=== PATIENT | male | born 1940 | race Caucasian/White ===

== ENCOUNTER 2017-10-23 20:38 | Inpatient (IN) | payer MEDICARE, BC ==
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
[2017-10-23 21:29] LABS: BASOPHILE ABSOLUTE 0.3 Th/cumm (0-0.2); HEMATOCRIT 40.1 % (41.0-60); HEMOGLOBIN 13.3 gm/dL (12-16); LYMPHOCYTE ABSOLUTE 0.7 Th/cmm (1.5-3.0); MEAN CORPUSCULAR HEMOGLOBIN 29.4 pg (27.0-31.0); MEAN CORPUSCULAR HGB CONC 33.1 pg (28.0-36.0); MEAN PLATELET VOLUME 8.6 fl; MONOCYTE ABSOLUTE 0.2 Th/cmm (0.3-1.0); NEUTROPHILE ABSOLUTE 10.6 Th/cmm (1.8-8.0); PLATELET COUNT 245 Th/cmm (150-400); RED CELL DISTRIBUTION WIDTH 12.7 % (11.5-20.0); WHITE BLOOD COUNT 11.8 Th/cmm (4.8-10.8)
[2017-10-23 21:30] LABS: % BASOPHILS 2.2 % (0.0-2.0); % EOSINOPHILS 0.2 % (0.0-5.0); % LYMPHOCYTES 5.6 % (20.0-50.0); % MONOCYTES 1.9 % (2.0-10.0); % NEUTROPHILS 90.1 % (40.0-80.0)
[2017-10-23 21:42] LABS: ALB/GLOB RATIO 1.1 (1.0-1.8); ALBUMIN 3.8 gm/dL (4.2-5.5); ALKALINE PHOSPHATASE 51 U/L (34-104); ANION GAP 12.5 (7.0-16.0); BILIRUBIN,TOTAL 0.8 mg/dL (0.3-1.0); BUN - UREA NITROGEN 45 mg/dL (7-25); CALCIUM SERUM 8.9 mg/dL (8.6-10.3); CARBON DIOXIDE 25.3 mEq/L (21.0-31.0); CHLORIDE 92 mEq/L (98-107); CREATININE - SERUM 1.4 mg/dL (0.7-1.3); GLUCOSE 357 mg/dL (70-105); POTASSIUM SERUM 3.8 mEq/L (3.5-5.1); SGOT 22 U/L (13-39); SGPT/ALT 21 U/L (7-52); SODIUM SERUM 126 mEq/L (136-145); TOTAL PROTEIN,SERUM 7.4 gm/dL (6.0-8.3)
[2017-10-23] MEDS ORDERED: Sodium Chloride 0.9% 1,000 ML IV ONE (21:50)
[2017-10-23] MEDS ORDERED: cefTRIAXone 1 GM in Sodium Chloride 0.9% 50 ML IV ONE (21:51)
[2017-10-23 22:30] LABS: URINE MICROSCOPIC INDICATED? YES; URINE SOURCE RANDOM
[2017-10-23 22:33] LABS: URINE BILIRUBIN NEGATIVE (NEGATIVE); URINE BLOOD TRACE (NEGATIVE); URINE GLUCOSE (UA) >=1000 mg/dL (NEGATIVE); URINE KETONE NEGATIVE (NEGATIVE); URINE LEUKOCYTE ESTERASE MODERATE (NEGATIVE); URINE NITRATE POSITIVE (NEGATIVE); URINE PH 5.5 (4.6 - 8.0); URINE PROTEIN 30 mg/dL (NEGATIVE); URINE UROBILINOGEN 0.2 E.U./dL (0.2 - 1.0)
[2017-10-23 22:37] LABS: URINE CLARITY HAZY (CLEAR); URINE COLOR YELLOW
[2017-10-23 22:41] LABS: URINE BACTERIA MANY /hpf (NONE SEEN); URINE EPITHELIAL CELLS FEW /lpf (FEW); URINE RBC 0-2 /hpf (0-5); URINE WBC >100 /hpf (0-5)
[2017-10-23 23:30] VITALS: BP 124/66
[2017-10-23] MEDS ORDERED: Fleet Enema 135 mL RC PRN (23:41)
[2017-10-23] MEDS ORDERED: Guaifenesin/Dextromethorphan 100mg-10mg/5mL Sugar Free 118mL Bottle PO PRN (23:41)
[2017-10-23] MEDS ORDERED: Magnesium Hydroxide (MOM) 30 mL UDC PO PRN (23:41)
[2017-10-23] MEDS ORDERED: GLUCAGON HCl 1 MG KIT IM PRN (23:41)
[2017-10-24] MEDS ORDERED: GLUCAGON HCl 1 MG KIT IM PRN ×2 (00:23→01:31)
[2017-10-24] MEDS: INSULIN ASPART SLIDING SCALE 100 UNITS/ML UNIT SUBQ SCH ×4 (06:40→21:34)
--- NOTE | 2017-10-24 08:11 | Diagnostic Imaging Report ---
Chest x-ray single view History: Shortness of breath Comparison: None The heart size is normal. No focal pulmonary parenchymal processes. No hilar or mediastinal abnormalities. Impression: No acute abnormalities
[2017-10-24] MEDS: Atorvastatin Calcium 10 MG TAB PO SCH (08:57)
[2017-10-24] MEDS: Fenofibrate, Micronized 134 mg Cap PO SCH (08:58)
[2017-10-24] MEDS: Multivitamin w/ Minerals Tab PO SCH (09:00)
[2017-10-24] MEDS: Sulfamethoxazole/TMP 800/160mg Tab PO SCH ×2 (09:01→16:41)
[2017-10-24] MEDS ORDERED: Haloperidol Lactate 5 mg/mL 1mL Vial ONE (13:20)
[2017-10-24] MEDS ORDERED: Probiotic Screen MC PRN (16:45)
[2017-10-24] MEDS: Insulin Detemir 100 units/mL 10mL Vial SUBQ SCH (21:40)
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
--- NOTE | 2017-10-25 05:10 | History & Physical ---
ADMIT DATE: 10/23/2017 HISTORY OF PRESENT ILLNESS: The patient is a 77-year-old male with long history of diabetes mellitus, hypertension, benign prostatic hypertrophy, hyperlipidemia, dementia, admitted to [facility] under Dr. Rueda's service with acute agitation, dementia. The patient is a poor historian. PAST MEDICAL HISTORY: Significant for diabetes mellitus, hypertension, benign prostatic hypertrophy, hyperlipidemia, dementia. PAST SURGICAL HISTORY: No recent surgery. ALLERGIES: None. MEDICATIONS: Follow admission reconciliation. SOCIAL HISTORY: Ex-smoker. No alcohol or drugs. FAMILY HISTORY: Noncontributory. REVIEW OF SYSTEMS: SYSTEM: No history of chronic renal disorder. CARDIOVASCULAR SYSTEM: No coronary artery disease. He has history of hypertension. ENDOCRINE SYSTEM: History of diabetes mellitus. GASTROINTESTINAL SYSTEM: No upper or lower gastrointestinal bleed. NEUROLOGICAL SYSTEM: History of dementia. SKELETOMUSCULAR SYSTEM: No muscular dystrophy. HEMATOLOGIC SYSTEM: No bleeding tendencies. RESPIRATORY SYSTEM: No asthma. GENITOURINARY: No dysuria or hematuria. The patient has benign prostatic hypertrophy. PHYSICAL EXAMINATION: GENERAL: He is awake, not coherent. VITAL SIGNS: Temperature 97.4, heart rate 70, blood pressure 159/71. HEENT: Normocephalic. Pupils reacting to light and accommodation. Sclerae clear. NECK: Supple. Negative for lymphadenopathy, JVD or bruit. CHEST: Entry of air bilaterally normal. No rhonchi or wheezing. HEART: S1, S2 normal. No gallop rhythm. ABDOMEN: Soft, bowel sounds positive. EXTREMITIES: No edema. NEUROLOGIC: He is awake, alert. No focal motor deficits. LABORATORY DATA: White blood cell is 11.8, hemoglobin is 13.3, hematocrit is 40.1, and platelet is 245, neutrophils 90%. Sodium 126, potassium 3.8, BUN 45, creatinine 0.4, glucose 325. Urinalysis: White blood cells at 100, pH is 5.5, specific gravity 1.010. ASSESSMENT: 1. Urinary tract infection. 2. Hyponatremia. 3. Diabetes mellitus. 4. Hypertension. 5. Benign prostatic hypertrophy. 6. Dementia. PLAN: The patient admitted to the hospital under Dr. Rueda's service. Problems addressed during hospitalization are dementia, urinary tract infection, diabetes mellitus, hypertension. The problems addressed at discharge are diabetes mellitus, hypertension, dementia, benign prostatic hypertrophy. The patient is cleared for activity. Thank you Dr. Rueda for asking me to see your patient. The patient will be on Rocephin 1 gram IM once a day for 5 days. JOB# [id number]
[2017-10-25] MEDS: Sulfamethoxazole/TMP 800/160mg Tab PO SCH (09:51)
[2017-10-25] MEDS: Multivitamin w/ Minerals Tab PO SCH (09:51)
[2017-10-25] MEDS: Fenofibrate, Micronized 134 mg Cap PO SCH (09:52)
[2017-10-25] MEDS: Lactobacillus Rhamnosus GG 15 Billion CFU CAP.SPRINK PO SCH (09:52)
[2017-10-25] MEDS: Atorvastatin Calcium 10 MG TAB PO SCH (09:54)
[2017-10-25] MEDS: INSULIN ASPART SLIDING SCALE 100 UNITS/ML UNIT SUBQ SCH ×3 (12:34→20:45)
--- NOTE | 2017-10-25 18:43 | Internal Medicine Prog Note ---
Internal Medicine Subjective - Subjective Service Date: 10/25/17 Patient seen and examined:: with staff Patient is:: non-interactive, in bed, confused Per staff patient has:: no adverse event Internal Medicine Objective - Results Result Diagrams: 10/23/17 21:21 10/23/17 21:21 Recent Labs: Laboratory Last Values WBC 11.8 Th/cmm (4.8-10.8) H 10/23/17 21:21 RBC 4.50 Mil/cmm (3.80-5.80) 10/23/17 21:21 Hgb 13.3 gm/dL (12-16) 10/23/17 21:21 Hct 40.1 % (41.0-60) L 10/23/17 21:21 MCV 89.0 fl (80-99) 10/23/17 21:21 MCH 29.4 pg (27.0-31.0) 10/23/17 21: MCHC Differential 33.1 pg (28.0-36.0) 10/23/17 21:21 RDW 12.7 % (11.5-20.0) 10/23/17 21:21 Plt Count 245 Th/cmm (150-400) 10/23/17 21:21 MPV 8.6 fl 10/23/17 21:21 Neutrophils % 90.1 % (40.0-80.0) H 10/23/17 21:21 Lymphocytes % 5.6 % (20.0-50.0) L 10/23/17 21: Monocytes % 1.9 % (2.0-10.0) L 10/23/17 21:21 Eosinophils % 0.2 % (0.0-5.0) 10/23/17 21:21 Basophils % 2.2 % (0.0-2.0) H 10/23/17 21:21 Sodium 126 mEq/L (136-145) L 10/23/17 21:21 Potassium 3.8 mEq/L (3.5-5.1) 10/23/17 21:21 Chloride 92 mEq/L (98-107) L 10/23/17 21:21 Carbon Dioxide 25.3 mEq/L (21.0-31.0) 10/23/17 21: Anion Gap 12.5 (7.0-16.0) 10/23/17 21:21 BUN 45 mg/dL (7-25) H 10/23/17 21:21 Creatinine 1.4 mg/dL (0.7-1.3) H 10/23/17 21:21 Est GFR ( Amer) TNP 10/23/17 21:21 Est GFR (Non-Af Amer) TNP 10/23/17 21:21 BUN/Creatinine Ratio 32.1 10/23/17 21:21 Glucose 357 mg/dL (70-105) H 10/23/17 21:21 POC Glucose 292 MG/DL (70 - 105) H 10/24/17 16:10 Hemoglobin A1c % 12.0 % (4.0-6.0) H 10/23/17 21:21 Calcium 8.9 mg/dL (8.6-10.3) 10/23/17 21:21 Total Bilirubin 0.8 mg/dL (0.3-1.0) 10/23/17 21:21 AST 22 U/L (13-39) 10/23/17 21:21 ALT 21 U/L (7-52) 10/23/17 21:21 Alkaline Phosphatase 51 U/L (34-104) 10/23/17 21:21 Total Protein 7.4 gm/dL (6.0-8.3) 10/23/17 21:21 Albumin 3.8 gm/dL (4.2-5.5) L 10/23/17 21:21 Globulin 3.6 gm/dL 10/23/17 21:21 Albumin/Globulin Ratio 1.1 (1.0-1.8) 10/23/17 21:21 TSH 1.06 uIU/ml (0.34-5.60) 10/23/17 21:21 Urine Source RANDOM 10/23/17 22:05 Urine Color YELLOW 10/23/17 22:05 Urine Clarity HAZY (CLEAR) 10/23/17 22:05 Urine pH 5.5 (4.6 - 8.0) 10/23/17 22:05 Ur Specific Ullin 1.010 (1.005-1.030) 10/23/17 22:05 Urine Protein 30 mg/dL (NEGATIVE) H 10/23/17 22:05 Urine Glucose (UA) >=1000 mg/dL (NEGATIVE) H 10/23/17 22:05 Urine Ketones NEGATIVE mg/dL (NEGATIVE) 10/23/17 22:05 Urine Blood TRACE (NEGATIVE) 10/23/17 22:05 Urine Nitrate POSITIVE (NEGATIVE) H 10/23/17 22:05 Urine Bilirubin NEGATIVE (NEGATIVE) 10/23/17 22:05 Urine Urobilinogen 0.2 E.U./dL (0.2 - 1.0) 10/23/17 22:05 Ur Leukocyte Esterase MODERATE (NEGATIVE) H 10/23/17 22:05 Urine RBC 0-2 /hpf (0-5) H 10/23/17 22:05 Urine WBC >100 /hpf (0-5) H 10/23/17 22:05 Ur Epithelial Cells FEW /lpf (FEW) 10/23/17 22:05 Urine Bacteria MANY /hpf (NONE SEEN) H 10/23/17 22:05 - Physical Exam Vitals and I&O: Vital Signs Temp 97.8 F 10/25/17 14:00 Pulse 64 10/25/17 14:00 Resp 19 10/25/17 14:00 BP 137/84 10/25/17 17:28 Pulse Ox 96 10/25/17 14:00 Intake & Output 10/24/17 10/25/17 10/25/17 18:59 06:59 18:59 Intake Total 1200 1200 Balance 1200 1200 Intake: Oral 1200 1200 Other: # Bowel Movements 1 1 Active Medications: Current Medications Acetaminophen (Tylenol) 650 mg PO Q4HR PRN PRN Reason: Mild Pain / Temp above 100 Stop: 12/23/17 00:00 Last Admin: 10/25/17 15:56 Dose: 650 mg Ascorbic Acid (Vitamin C) 500 mg PO DAILY [facility] Stop: 12/23/17 08:59 Last Admin: 10/25/17 09:51 Dose: 500 mg Atorvastatin Calcium (Lipitor) 40 mg PO DAILY [facility] Stop: 12/23/17 08:59 Last Admin: 10/25/17 09:54 Dose: 40 mg Bisacodyl (Dulcolax 10 Mg Supp) 10 mg RC DAILY PRN PRN Reason: Constipation Stop: 12/22/17 23:40 Carvedilol (Coreg) 50 mg PO DAILY [facility] Stop: 12/23/17 08:59 Last Admin: 10/25/17 09:54 Dose: 50 mg Dextrose (Glutose 40%) 37.5 gm PO DAILY PRN PRN Reason: LOW SUGAR Stop: 12/22/17 23:40 Docusate Sodium (Colace) 100 mg PO DAILY [facility] Stop: 12/23/17 08:59 Last Admin: 10/25/17 09:51 Dose: 100 mg Escitalopram Oxalate (Lexapro) 20 mg PO HS ADRIANA PRN Reason: Protocol Stop: 12/23/17 20:59 Last Admin: 10/24/17 21:29 Dose: 20 mg Fenofibrate (Tricor) 134 mg PO DAILY [facility] Stop: 12/23/17 08:59 Last Admin: 10/25/17 09:52 Dose: 134 mg Furosemide (Lasix) 40 mg PO BID [facility] Stop: 12/23/17 08:59 Last Admin: 10/25/17 17:28 Dose: 40 mg Glucagon (Glucagen) 1 mg IM DAILY PRN; Protocol PRN Reason: LOW SUGAR (BG<70) Stop: 12/22/17 23:40 Guaifenesin/Dextromethorphan (Diabetic Tussin Dm Sugar Free) 5 ml PO Q6HR PRN PRN Reason: Cough Stop: 12/22/17 23:40 Insulin Aspart (Novolog Insulin Sliding Scale) 0 units SUBQ ACHS ADRIANA PRN Reason: Protocol Stop: 12/23/17 07:29 Last Admin: 10/25/17 17:27 Dose: 4 units Insulin Detemir (Levemir Insulin) 80 units SUBQ HS ADRIANA PRN Reason: Protocol Stop: 12/23/17 20:59 Last Admin: 10/24/17 21:40 Dose: 80 units Lactobacillus Rhamnosus (Culturelle 15b) 1 each PO DAILY [facility] Stop: 12/24/17 08:59 Last Admin: 10/25/17 09:52 Dose: 1 each Lorazepam (Ativan) 1 mg PO Q6HR PRN; Protocol PRN Reason: Anxiety/agitation Stop: 12/22/17 23:40 Last Admin: 10/25/17 17:28 Dose: 1 mg Magnesium Hydroxide (Milk Of Magnesia) 30 ml PO DAILY PRN PRN Reason: Constipation Stop: 12/22/17 23:40 Miscellaneous (Probiotic Screen) 1 ea MC PRN PRN PRN Reason: PROTOCOL Stop: 12/23/17 16:44 Quetiapine Fumarate (Seroquel) 50 mg PO TID ADRIANA PRN Reason: Protocol Stop: 12/24/17 08:59 Last Admin: 10/25/17 13:53 Dose: 50 mg Rivaroxaban (Xarelto) 20 mg PO 1700 [facility] Stop: 12/23/17 16:59 Last Admin: 10/25/17 17:28 Dose: 20 mg Tamsulosin HCl (Flomax) 0.4 mg PO HS ADRIANA Stop: 12/23/17 20:59 Last Admin: 10/24/17 21:29 Dose: 0.4 mg Trazodone HCl (Desyrel) 200 mg PO HS ADRIANA Stop: 12/23/17 20:59 Last Admin: 10/24/17 21:30 Dose: 200 mg Trimethoprim/Sulfamethoxazole (Bactrim Ds) 1 tab PO BID [facility] Stop: 12/27/17 18:00 Last Admin: 10/25/17 09:51 Dose: 1 tab Valsartan (Diovan) 320 mg PO DAILY [facility] Stop: 12/23/17 08:59 Last Admin: 10/25/17 09:53 Dose: 320 mg Zolpidem Tartrate (Ambien) 5 mg PO HS PRN PRN Reason: Insomnia Stop: 12/22/17 23:56 Last Admin: 10/24/17 23:33 Dose: 5 mg General: demented HEENT: NC/AT, PERRLA, EOMI, anicteric sclerae, throat clear Neck: Supple, No JVD, No thyromegaly, +2 carotid pulse wo bruit, No LAD Lungs: CTAB Cardiovascular: RRR, Normal S1, Normal S2, without murmur Abdomen: non-distended Extremities: clear Neurological: no change Internal Medicine Assmt/Plan - Assessment Assessment: 1.UTI. 2.DM. 3.HTN. 4.BPH. 5.HYPONATREMIA. 6.DEMENTIA. - Plan Plan: CONTINUE ON CURRENT MEDICATION AND DIET. Nutritional Asmnt/Malnutr-PDOC - Dietary Evaluation Malnutrition Findings (Please click <Entered> for more info): Nutritional Asmnt/Malnutrition Start: 10/24/17 14: 31 Text: Status: Complete Freq: Document 10/24/17 14:33 LCHENG (Rec: 10/24/17 14:41 [email or web address]) Nutritional Asmnt/Malnutrition Patient General Information Nutritional Screening High Risk Diagnosis psychosis Pertinent Medical Hx/Surgical Hx HTN, CAD, CHF, dyslipidemia, BPH, psoriasis, DM, anxiety Subjective Information Pt seen sitting in dinning room at time of visit, just finished lunch tray. Pt stated he does not like cucumber and cottage cheeze. Current Diet Order/ Nutrition Support low sodium 2 gm, CCHO, TOM Pertinent Medications vitamin C, colace, lasix, glucagen, novolog, levemir Pertinent Labs 10/23 Na 126, K 3.8, Cl 92, BUN 45, Cr 1.4, Glucose 357, ALb 3.8 10/24 POC 325 Nutritional Hx/Data Height 1.75 m Height (Calculated Centimeters) 175.3 Current Weight (lbs) 102.058 kg Weight (Calculated Kilograms) 102.1 Weight (Calculated Grams) 150654.3 [place] Body Weight 160 % [place] Body Weight 140 Body Mass Index (BMI) 33.2 Weight Status Obese GI Symptoms GI Symptoms None Last BM 10/24 x 3 Difficult in: None Usual diet at home pt stated he was not following any diet restrictions Skin Integrity/Comment: juan Ulrich Estimated Nutritional Goals BEE in Kcals: Adj wt of IBW Calories/Kcals/Kg 25-30 Kcals Calculated 9101-2061 Protein: Adj wt of IBW Protein g/k Protein Calculated 80 Fluid: ml 2000-2400ml (1ml/kcal) Nutritional Problem 2. Problem Problem obesity Etiology possible excessive energy intake Signs/Symptoms: BMI 33.2 1. Problem Problem altered nutrition related lab values Etiology hx of DM, excessive carbohydrates intake Signs/Symptoms: Glucose 357, POC 325 Malnutrition Alert Protein-Calorie Malnutrition N/A Is there a minimum of two criteria No selected? Query Text:Check all the applicable criteria. A minimum of two criteria are recommended for diagnosis of either severe or non-severe malnutrition. Intervention/Recommendation Comments 1. Continue with current diet as ordered. [facility] Pt receiptive, no question or concern, will follow the diet. 2. Monitor PO intake, wt, labs and skin integrity 3. F/U as moderate risk in 3-5 days, 10/27-10/29 Expected Outcomes/Goals Expected Outcomes/Goals 1. PO intake to meet at least 75% of nutritional needs. 2. Wt stability, skin to remain intact, labs to improve
[2017-10-25] MEDS: Insulin Detemir 100 units/mL 10mL Vial SUBQ SCH (21:29)
--- NOTE | 2017-10-26 04:45 | Progress Notes ---
DATE: 10/25/2017 SUBJECTIVE: Chart reviewed and the patient interviewed. Also discussed the patient's condition with the staff and reviewed the records and labs. The patient is still extremely agitated and he is still in irritable mood. The patient also is needy and he is still suspicious and paranoid. The patient also is still needy and is demanding and the patient constantly asking staff to change his diapers and when they changes the diapers, shortly after he take off the diaper and then ask them to change it again. He is also confused and he is in irritable and angry mood. Also, he is having difficulty following directions and he is still unable to sleep at night. ASSESSMENT: The patient is still psychotic and is agitated. TREATMENT PLAN: We will continue to monitor his behavior and his condition closely. Also, we will add Seroquel in a dose of 50 mg 3 times a day. Also, continue to work on behavioral modification. Yesterday, the patient was given emergency dose of Haldol, Ativan, and Benadryl to calm him down. No side effects. JOB# [id number]
[2017-10-26] MEDS: INSULIN ASPART SLIDING SCALE 100 UNITS/ML UNIT SUBQ SCH ×4 (06:36→21:03)
[2017-10-26] MEDS: Lactobacillus Rhamnosus GG 15 Billion CFU CAP.SPRINK PO SCH (09:08)
[2017-10-26] MEDS: Fenofibrate, Micronized 134 mg Cap PO SCH (09:08)
[2017-10-26] MEDS: Sulfamethoxazole/TMP 800/160mg Tab PO SCH (09:09)
[2017-10-26] MEDS: Atorvastatin Calcium 10 MG TAB PO SCH (09:09)
[2017-10-26] MEDS: Multivitamin w/ Minerals Tab PO SCH (09:09)
[2017-10-26] MEDS ORDERED: Amoxicillin/Clavulanat 875/125 Tab PO SCH (17:00)
[2017-10-26] MEDS: Amoxicillin/Clavulanat 875/125 Tab PO SCH (17:32)
--- NOTE | 2017-10-26 17:43 | Internal Medicine Prog Note ---
Internal Medicine Subjective - Subjective Service Date: 10/26/17 Patient seen and examined:: with staff Patient is:: non-interactive, in bed, confused Per staff patient has:: no adverse event Internal Medicine Objective - Results Result Diagrams: 10/23/17 21:21 10/23/17 21:21 Recent Labs: Laboratory Last Values WBC 11.8 Th/cmm (4.8-10.8) H 10/23/17 21:21 RBC 4.50 Mil/cmm (3.80-5.80) 10/23/17 21:21 Hgb 13.3 gm/dL (12-16) 10/23/17 21:21 Hct 40.1 % (41.0-60) L 10/23/17 21:21 MCV 89.0 fl (80-99) 10/23/17 21:21 MCH 29.4 pg (27.0-31.0) 10/23/17 21: MCHC Differential 33.1 pg (28.0-36.0) 10/23/17 21:21 RDW 12.7 % (11.5-20.0) 10/23/17 21:21 Plt Count 245 Th/cmm (150-400) 10/23/17 21:21 MPV 8.6 fl 10/23/17 21:21 Neutrophils % 90.1 % (40.0-80.0) H 10/23/17 21:21 Lymphocytes % 5.6 % (20.0-50.0) L 10/23/17 21: Monocytes % 1.9 % (2.0-10.0) L 10/23/17 21:21 Eosinophils % 0.2 % (0.0-5.0) 10/23/17 21:21 Basophils % 2.2 % (0.0-2.0) H 10/23/17 21:21 Sodium 126 mEq/L (136-145) L 10/23/17 21:21 Potassium 3.8 mEq/L (3.5-5.1) 10/23/17 21:21 Chloride 92 mEq/L (98-107) L 10/23/17 21:21 Carbon Dioxide 25.3 mEq/L (21.0-31.0) 10/23/17 21: Anion Gap 12.5 (7.0-16.0) 10/23/17 21:21 BUN 45 mg/dL (7-25) H 10/23/17 21:21 Creatinine 1.4 mg/dL (0.7-1.3) H 10/23/17 21:21 Est GFR ( Amer) TNP 10/23/17 21:21 Est GFR (Non-Af Amer) TNP 10/23/17 21:21 BUN/Creatinine Ratio 32.1 10/23/17 21:21 Glucose 357 mg/dL (70-105) H 10/23/17 21:21 POC Glucose 134 MG/DL (70 - 105) H 10/26/17 17:21 Hemoglobin A1c % 12.0 % (4.0-6.0) H 10/23/17 21:21 Calcium 8.9 mg/dL (8.6-10.3) 10/23/17 21:21 Total Bilirubin 0.8 mg/dL (0.3-1.0) 10/23/17 21:21 AST 22 U/L (13-39) 10/23/17 21:21 ALT 21 U/L (7-52) 10/23/17 21:21 Alkaline Phosphatase 51 U/L (34-104) 10/23/17 21:21 Total Protein 7.4 gm/dL (6.0-8.3) 10/23/17 21:21 Albumin 3.8 gm/dL (4.2-5.5) L 10/23/17 21:21 Globulin 3.6 gm/dL 10/23/17 21:21 Albumin/Globulin Ratio 1.1 (1.0-1.8) 10/23/17 21:21 TSH 1.06 uIU/ml (0.34-5.60) 10/23/17 21:21 Urine Source RANDOM 10/23/17 22:05 Urine Color YELLOW 10/23/17 22:05 Urine Clarity HAZY (CLEAR) 10/23/17 22:05 Urine pH 5.5 (4.6 - 8.0) 10/23/17 22:05 Ur Specific [place] 1.010 (1.005-1.030) 10/23/17 22:05 Urine Protein 30 mg/dL (NEGATIVE) H 10/23/17 22:05 Urine Glucose (UA) >=1000 mg/dL (NEGATIVE) H 10/23/17 22:05 Urine Ketones NEGATIVE mg/dL (NEGATIVE) 10/23/17 22:05 Urine Blood TRACE (NEGATIVE) 10/23/17 22:05 Urine Nitrate POSITIVE (NEGATIVE) H 10/23/17 22:05 Urine Bilirubin NEGATIVE (NEGATIVE) 10/23/17 22:05 Urine Urobilinogen 0.2 E.U./dL (0.2 - 1.0) 10/23/17 22:05 Ur Leukocyte Esterase MODERATE (NEGATIVE) H 10/23/17 22:05 Urine RBC 0-2 /hpf (0-5) H 10/23/17 22:05 Urine WBC >100 /hpf (0-5) H 10/23/17 22:05 Ur Epithelial Cells FEW /lpf (FEW) 10/23/17 22:05 Urine Bacteria MANY /hpf (NONE SEEN) H 10/23/17 22:05 - Physical Exam Vitals and I&O: Vital Signs Temp 97.0 F 10/26/17 15:00 Pulse 70 10/26/17 17:27 Resp 19 10/26/17 15:00 BP 109/67 10/26/17 17:27 Pulse Ox 95 10/26/17 15:00 Intake & Output 10/25/17 10/26/17 10/26/17 18:59 06:59 18:59 Intake Total 1200 500 Balance 1200 500 Intake: Oral 1200 500 Other: # Voids 2 # Bowel Movements 1 0 Active Medications: Current Medications Acetaminophen (Tylenol) 650 mg PO Q4HR PRN PRN Reason: Mild Pain / Temp above 100 Stop: 12/23/17 00:00 Last Admin: 10/25/17 15:56 Dose: 650 mg Amoxicillin/Clavulanate Potassium (Augmentin 875-125mg) 1 tab PO BID [facility] Stop: 12/25/17 16:59 Last Admin: 10/26/17 17:32 Dose: 1 tab Ascorbic Acid (Vitamin C) 500 mg PO DAILY [facility] Stop: 12/23/17 08:59 Last Admin: 10/26/17 09:09 Dose: 500 mg Atorvastatin Calcium (Lipitor) 40 mg PO DAILY [facility] Stop: 12/23/17 08:59 Last Admin: 10/26/17 09:09 Dose: 40 mg Bisacodyl (Dulcolax 10 Mg Supp) 10 mg RC DAILY PRN PRN Reason: Constipation Stop: 12/22/17 23:40 Carvedilol (Coreg) 50 mg PO DAILY [facility] Stop: 12/23/17 08:59 Last Admin: 10/26/17 17:26 Dose: Not Given Dextrose (Glutose 40%) 37.5 gm PO DAILY PRN PRN Reason: LOW SUGAR Stop: 12/22/17 23:40 Docusate Sodium (Colace) 100 mg PO DAILY [facility] Stop: 12/23/17 08:59 Last Admin: 10/26/17 15:29 Dose: Not Given Escitalopram Oxalate (Lexapro) 20 mg PO HS [facility] PRN Reason: Protocol Stop: 12/23/17 20:59 Last Admin: 10/25/17 20:44 Dose: 20 mg Fenofibrate (Tricor) 134 mg PO DAILY [facility] Stop: 12/23/17 08:59 Last Admin: 10/26/17 09:08 Dose: 134 mg Furosemide (Lasix) 40 mg PO BID [facility] Stop: 12/23/17 08:59 Last Admin: 10/26/17 17:27 Dose: Not Given Glucagon (Glucagen) 1 mg IM DAILY PRN; Protocol PRN Reason: LOW SUGAR (BG<70) Stop: 12/22/17 23:40 Guaifenesin/Dextromethorphan (Diabetic Tussin Dm Sugar Free) 5 ml PO Q6HR PRN PRN Reason: Cough Stop: 12/22/17 23:40 Insulin Aspart (Novolog Insulin Sliding Scale) 0 units SUBQ ACHS [facility] PRN Reason: Protocol Stop: 12/23/17 07:29 Last Admin: 10/26/17 17:25 Dose: Not Given Insulin Detemir (Levemir Insulin) 80 units SUBQ HS [facility] PRN Reason: Protocol Stop: 12/23/17 20:59 Last Admin: 10/25/17 21:29 Dose: 80 units Lactobacillus Rhamnosus (Culturelle 15b) 1 each PO DAILY [facility] Stop: 12/24/17 08:59 Last Admin: 10/26/17 09:08 Dose: 1 each Lorazepam (Ativan) 1 mg PO Q6HR PRN; Protocol PRN Reason: Anxiety/agitation Stop: 12/22/17 23:40 Last Admin: 10/26/17 15:35 Dose: 1 mg Magnesium Hydroxide (Milk Of Magnesia) 30 ml PO DAILY PRN PRN Reason: Constipation Stop: 12/22/17 23:40 Miscellaneous (Probiotic Screen) 1 ea MC PRN PRN PRN Reason: PROTOCOL Stop: 12/23/17 16:44 Quetiapine Fumarate (Seroquel) 50 mg PO TID [facility] PRN Reason: Protocol Stop: 12/24/17 08:59 Last Admin: 10/26/17 14:25 Dose: 50 mg Rivaroxaban (Xarelto) 20 mg PO 1700 [facility] Stop: 12/23/17 16:59 Last Admin: 10/26/17 17:32 Dose: 20 mg Tamsulosin HCl (Flomax) 0.4 mg PO HS [facility] Stop: 12/23/17 20:59 Last Admin: 10/25/17 20:45 Dose: 0.4 mg Trazodone HCl (Desyrel) 200 mg PO HS [facility] Stop: 12/23/17 20:59 Last Admin: 10/25/17 20:44 Dose: 200 mg Valsartan (Diovan) 320 mg PO DAILY [facility] Stop: 12/23/17 08:59 Last Admin: 10/26/17 17:27 Dose: Not Given Zolpidem Tartrate (Ambien) 5 mg PO HS PRN PRN Reason: Insomnia Stop: 12/22/17 23:56 Last Admin: 10/25/17 23:24 Dose: 5 mg General: demented HEENT: NC/AT, PERRLA, EOMI, anicteric sclerae, throat clear Neck: Supple, No JVD, No thyromegaly, +2 carotid pulse wo bruit, No LAD Lungs: CTAB Cardiovascular: RRR, Normal S1, Normal S2, without murmur Abdomen: non-distended Extremities: clear Neurological: no change Internal Medicine Assmt/Plan - Assessment Assessment: 1.UTI. 2.DM. 3.HTN. 4.BPH. 5.HYPONATREMIA. 6.DEMENTIA. - Plan Plan: CONTINUE ON CURRENT MEDICATION AND DIET.CHANGE ANTIBIOTIC TO AUGMENTIN 875 MG BID. Nutritional Asmnt/Malnutr-PDOC - Dietary Evaluation Malnutrition Findings (Please click <Entered> for more info): Nutritional Asmnt/Malnutrition Start: 10/24/17 14: 31 Text: Status: Complete Freq: Document 10/24/17 14:33 LCHENG (Rec: 10/24/17 14:41 [facility] [id number]) Nutritional Asmnt/Malnutrition Patient General Information Nutritional Screening High Risk Diagnosis psychosis Pertinent Medical Hx/Surgical Hx HTN, CAD, CHF, dyslipidemia, BPH, psoriasis, DM, anxiety Subjective Information Pt seen sitting in dinning room at time of visit, just finished lunch tray. Pt stated he does not like cucumber and cottage cheeze. Current Diet Order/ Nutrition Support low sodium 2 gm, CCHO, TOM Pertinent Medications vitamin C, colace, lasix, glucagen, novolog, levemir Pertinent Labs 10/23 Na 126, K 3.8, Cl 92, BUN 45, Cr 1.4, Glucose 357, ALb 3.8 10/24 POC 325 Nutritional Hx/Data Height 1.75 m Height (Calculated Centimeters) 175.3 Current Weight (lbs) 102.058 kg Weight (Calculated Kilograms) 102.1 Weight (Calculated Grams) 690299.3 [place] Body Weight 160 % [place] Body Weight 140 Body Mass Index (BMI) 33.2 Weight Status Obese GI Symptoms GI Symptoms None Last BM 10/24 x 3 Difficult in: None Usual diet at home pt stated he was not following any diet restrictions Skin Integrity/Comment: juan Ulrich Estimated Nutritional Goals BEE in Kcals: Adj wt of IBW Calories/Kcals/Kg 25-30 Kcals Calculated 6264-5236 Protein: Adj wt of IBW Protein g/k Protein Calculated 80 Fluid: ml 2000-2400ml (1ml/kcal) Nutritional Problem 2. Problem Problem obesity Etiology possible excessive energy intake Signs/Symptoms: BMI 33.2 1. Problem Problem altered nutrition related lab values Etiology hx of DM, excessive carbohydrates intake Signs/Symptoms: Glucose 357, POC 325 Malnutrition Alert Protein-Calorie Malnutrition N/A Is there a minimum of two criteria No selected? Query Text:Check all the applicable criteria. A minimum of two criteria are recommended for diagnosis of either severe or non-severe malnutrition. Intervention/Recommendation Comments 1. Continue with current diet as ordered. Explained [facility] diet to pt. Pt receiptive, no question or concern, will follow the diet. 2. Monitor PO intake, wt, labs and skin integrity 3. F/U as moderate risk in 3-5 days, 10/27-10/29 Expected Outcomes/Goals Expected Outcomes/Goals 1. PO intake to meet at least 75% of nutritional needs. 2. Wt stability, skin to remain intact, labs to improve
[2017-10-26] MEDS: Insulin Detemir 100 units/mL 10mL Vial SUBQ SCH (21:03)
[2017-10-27] MEDS: INSULIN ASPART SLIDING SCALE 100 UNITS/ML UNIT SUBQ SCH ×4 (06:59→21:22)
--- NOTE | 2017-10-27 07:35 | Progress Notes ---
DATE: 10/26/2017 SUBJECTIVE: Chart reviewed and the patient interviewed. Also discussed the patient's condition with the staff and reviewed records and labs. The patient continued to be suspicious and severely paranoid. The patient also is taking off his clothes and also asking to change his diaper and after staff changing his diaper, he takes off his clothes again and take off the diaper and asks to staff to change with a new diaper. He is also still easily agitated and confused and he is still rambling with disorganized thoughts. Also unable to follow any of the staff directions. ASSESSMENT: The patient is still confused and is still agitated. TREATMENT PLAN: The patient started on Seroquel 50 mg 3 times a day. We will continue same dose. Also, continue to monitor his behavior and his condition closely and also we will place the patient on 5250 hold for dangerous to others as well as grave disability. JOB# [id number]
[2017-10-27] MEDS: Atorvastatin Calcium 10 MG TAB PO SCH (08:25)
[2017-10-27] MEDS: Multivitamin w/ Minerals Tab PO SCH (08:25)
[2017-10-27] MEDS: Lactobacillus Rhamnosus GG 15 Billion CFU CAP.SPRINK PO SCH (08:26)
[2017-10-27] MEDS: Amoxicillin/Clavulanat 875/125 Tab PO SCH ×2 (08:30→17:26)
[2017-10-27] MEDS: Fenofibrate, Micronized 134 mg Cap PO SCH (08:31)
--- NOTE | 2017-10-27 20:23 | Internal Medicine Prog Note ---
Internal Medicine Subjective - Subjective Service Date: 10/27/17 Patient seen and examined:: without staff Patient is:: non-interactive, in bed, confused Per staff patient has:: no adverse event Internal Medicine Objective - Results Result Diagrams: 10/23/17 21:21 10/23/17 21:21 Recent Labs: Laboratory Last Values WBC 11.8 Th/cmm (4.8-10.8) H 10/23/17 21:21 RBC 4.50 Mil/cmm (3.80-5.80) 10/23/17 21:21 Hgb 13.3 gm/dL (12-16) 10/23/17 21:21 Hct 40.1 % (41.0-60) L 10/23/17 21:21 MCV 89.0 fl (80-99) 10/23/17 21:21 MCH 29.4 pg (27.0-31.0) 10/23/17 21: MCHC Differential 33.1 pg (28.0-36.0) 10/23/17 21:21 RDW 12.7 % (11.5-20.0) 10/23/17 21:21 Plt Count 245 Th/cmm (150-400) 10/23/17 21:21 MPV 8.6 fl 10/23/17 21:21 Neutrophils % 90.1 % (40.0-80.0) H 10/23/17 21:21 Lymphocytes % 5.6 % (20.0-50.0) L 10/23/17 21: Monocytes % 1.9 % (2.0-10.0) L 10/23/17 21:21 Eosinophils % 0.2 % (0.0-5.0) 10/23/17 21:21 Basophils % 2.2 % (0.0-2.0) H 10/23/17 21:21 Sodium 126 mEq/L (136-145) L 10/23/17 21:21 Potassium 3.8 mEq/L (3.5-5.1) 10/23/17 21:21 Chloride 92 mEq/L (98-107) L 10/23/17 21:21 Carbon Dioxide 25.3 mEq/L (21.0-31.0) 10/23/17 21: Anion Gap 12.5 (7.0-16.0) 10/23/17 21:21 BUN 45 mg/dL (7-25) H 10/23/17 21:21 Creatinine 1.4 mg/dL (0.7-1.3) H 10/23/17 21:21 Est GFR ( Amer) TNP 10/23/17 21:21 Est GFR (Non-Af Amer) TNP 10/23/17 21:21 BUN/Creatinine Ratio 32.1 10/23/17 21:21 Glucose 357 mg/dL (70-105) H 10/23/17 21:21 POC Glucose 76 MG/DL (70 - 105) 10/27/17 06:54 Hemoglobin A1c % 12.0 % (4.0-6.0) H 10/23/17 21:21 Calcium 8.9 mg/dL (8.6-10.3) 10/23/17 21:21 Total Bilirubin 0.8 mg/dL (0.3-1.0) 10/23/17 21:21 AST 22 U/L (13-39) 10/23/17 21:21 ALT 21 U/L (7-52) 10/23/17 21:21 Alkaline Phosphatase 51 U/L (34-104) 10/23/17 21:21 Total Protein 7.4 gm/dL (6.0-8.3) 10/23/17 21:21 Albumin 3.8 gm/dL (4.2-5.5) L 10/23/17 21:21 Globulin 3.6 gm/dL 10/23/17 21:21 Albumin/Globulin Ratio 1.1 (1.0-1.8) 10/23/17 21:21 TSH 1.06 uIU/ml (0.34-5.60) 10/23/17 21:21 Urine Source RANDOM 10/23/17 22:05 Urine Color YELLOW 10/23/17 22:05 Urine Clarity HAZY (CLEAR) 10/23/17 22:05 Urine pH 5.5 (4.6 - 8.0) 10/23/17 22:05 Ur Specific [place] 1.010 (1.005-1.030) 10/23/17 22:05 Urine Protein 30 mg/dL (NEGATIVE) H 10/23/17 22:05 Urine Glucose (UA) >=1000 mg/dL (NEGATIVE) H 10/23/17 22:05 Urine Ketones NEGATIVE mg/dL (NEGATIVE) 10/23/17 22:05 Urine Blood TRACE (NEGATIVE) 10/23/17 22:05 Urine Nitrate POSITIVE (NEGATIVE) H 10/23/17 22:05 Urine Bilirubin NEGATIVE (NEGATIVE) 10/23/17 22:05 Urine Urobilinogen 0.2 E.U./dL (0.2 - 1.0) 10/23/17 22:05 Ur Leukocyte Esterase MODERATE (NEGATIVE) H 10/23/17 22:05 Urine RBC 0-2 /hpf (0-5) H 10/23/17 22:05 Urine WBC >100 /hpf (0-5) H 10/23/17 22:05 Ur Epithelial Cells FEW /lpf (FEW) 10/23/17 22:05 Urine Bacteria MANY /hpf (NONE SEEN) H 10/23/17 22:05 - Physical Exam Vitals and I&O: Vital Signs Temp 98.8 F 10/27/17 14:00 Pulse 90 10/27/17 14:00 Resp 20 10/27/17 14:00 BP 102/54 10/27/17 17:26 Pulse Ox 97 10/27/17 14:00 Intake & Output 10/27/17 10/27/17 10/28/17 06:59 18:59 06:59 Intake Total 900 Balance 900 Intake: Oral 900 Other: # Voids 3 # Bowel Movements 4 Active Medications: Current Medications Acetaminophen (Tylenol) 650 mg PO Q4HR PRN PRN Reason: Mild Pain / Temp above 100 Stop: 12/23/17 00:00 Last Admin: 10/25/17 15:56 Dose: 650 mg Amoxicillin/Clavulanate Potassium (Augmentin 875-125mg) 1 tab PO BID [facility] Stop: 12/25/17 16:59 Last Admin: 10/27/17 17:26 Dose: 1 tab Ascorbic Acid (Vitamin C) 500 mg PO DAILY [facility] Stop: 12/23/17 08:59 Last Admin: 10/27/17 08:32 Dose: 500 mg Atorvastatin Calcium (Lipitor) 40 mg PO DAILY [facility] Stop: 12/23/17 08:59 Last Admin: 10/27/17 08:25 Dose: 40 mg Bisacodyl (Dulcolax 10 Mg Supp) 10 mg RC DAILY PRN PRN Reason: Constipation Stop: 12/22/17 23:40 Carvedilol (Coreg) 50 mg PO DAILY [facility] Stop: 12/23/17 08:59 Last Admin: 10/27/17 08:27 Dose: 50 mg Dextrose (Glutose 40%) 37.5 gm PO DAILY PRN PRN Reason: LOW SUGAR Stop: 12/22/17 23:40 Docusate Sodium (Colace) 100 mg PO DAILY [facility] Stop: 12/23/17 08:59 Last Admin: 10/27/17 08:31 Dose: 100 mg Escitalopram Oxalate (Lexapro) 20 mg PO HS [facility] PRN Reason: Protocol Stop: 12/23/17 20:59 Last Admin: 10/26/17 20:10 Dose: 20 mg Fenofibrate (Tricor) 134 mg PO DAILY [facility] Stop: 12/23/17 08:59 Last Admin: 10/27/17 08:31 Dose: 134 mg Furosemide (Lasix) 40 mg PO BID [facility] Stop: 12/23/17 08:59 Last Admin: 10/27/17 17:26 Dose: 40 mg Glucagon (Glucagen) 1 mg IM DAILY PRN; Protocol PRN Reason: LOW SUGAR (BG<70) Stop: 12/22/17 23:40 Guaifenesin/Dextromethorphan (Diabetic Tussin Dm Sugar Free) 5 ml PO Q6HR PRN PRN Reason: Cough Stop: 12/22/17 23:40 Insulin Aspart (Novolog Insulin Sliding Scale) 0 units SUBQ ACHS [facility] PRN Reason: Protocol Stop: 12/23/17 07:29 Last Admin: 10/27/17 16:33 Dose: Not Given Insulin Detemir (Levemir Insulin) 80 units SUBQ HS [facility] PRN Reason: Protocol Stop: 12/23/17 20:59 Last Admin: 10/26/17 21:03 Dose: 80 units Lactobacillus Rhamnosus (Culturelle 15b) 1 each PO DAILY [facility] Stop: 12/24/17 08:59 Last Admin: 10/27/17 08:26 Dose: 1 each Lorazepam (Ativan) 1 mg PO Q6HR PRN; Protocol PRN Reason: Anxiety/agitation Stop: 12/22/17 23:40 Last Admin: 10/26/17 23:01 Dose: 1 mg Magnesium Hydroxide (Milk Of Magnesia) 30 ml PO DAILY PRN PRN Reason: Constipation Stop: 12/22/17 23:40 Miscellaneous (Probiotic Screen) 1 ea MC PRN PRN PRN Reason: PROTOCOL Stop: 12/23/17 16:44 Quetiapine Fumarate (Seroquel) 50 mg PO TID [facility] PRN Reason: Protocol Stop: 12/24/17 08:59 Last Admin: 10/27/17 14:27 Dose: 50 mg Rivaroxaban (Xarelto) 20 mg PO 1700 [facility] Stop: 12/23/17 16:59 Last Admin: 10/27/17 17:26 Dose: 20 mg Tamsulosin HCl (Flomax) 0.4 mg PO HS [facility] Stop: 12/23/17 20:59 Last Admin: 10/26/17 20:10 Dose: 0.4 mg Trazodone HCl (Desyrel) 200 mg PO HS [facility] Stop: 12/23/17 20:59 Last Admin: 10/26/17 20:10 Dose: 200 mg Valsartan (Diovan) 320 mg PO DAILY [facility] Stop: 12/23/17 08:59 Last Admin: 10/27/17 08:26 Dose: 320 mg Zolpidem Tartrate (Ambien) 5 mg PO HS PRN PRN Reason: Insomnia Stop: 12/22/17 23:56 Last Admin: 10/26/17 23:01 Dose: 5 mg General: demented HEENT: NC/AT, PERRLA, EOMI, anicteric sclerae, throat clear Neck: Supple, No JVD, No thyromegaly, +2 carotid pulse wo bruit, No LAD Lungs: CTAB Cardiovascular: RRR, Normal S1, Normal S2, without murmur Abdomen: non-distended Extremities: clear Neurological: no change Internal Medicine Assmt/Plan - Assessment Assessment: 1.UTI. 2.DM. 3.HTN. 4.BPH. 5.HYPONATREMIA. 6.DEMENTIA. - Plan Plan: CONTINUE ON CURRENT MEDICATION AND DIET. Nutritional Asmnt/Malnutr-PDOC - Dietary Evaluation Malnutrition Findings (Please click <Entered> for more info): Nutritional Asmnt/Malnutrition Start: 10/24/17 14: 31 Text: Status: Complete Freq: Document 10/24/17 14:33 LCHENG (Rec: 10/24/17 14:41 LCHENG [email or web address]) Nutritional Asmnt/Malnutrition Patient General Information Nutritional Screening High Risk Diagnosis psychosis Pertinent Medical Hx/Surgical Hx HTN, CAD, CHF, dyslipidemia, BPH, psoriasis, DM, anxiety Subjective Information Pt seen sitting in dinning room at time of visit, just finished lunch tray. Pt stated he does not like cucumber and cottage cheeze. Current Diet Order/ Nutrition Support low sodium 2 gm, CCHO, TOM Pertinent Medications vitamin C, colace, lasix, glucagen, novolog, levemir Pertinent Labs 10/23 Na 126, K 3.8, Cl 92, BUN 45, Cr 1.4, Glucose 357, ALb 3.8 10/24 POC 325 Nutritional Hx/Data Height 1.75 m Height (Calculated Centimeters) 175.3 Current Weight (lbs) 102.058 kg Weight (Calculated Kilograms) 102.1 Weight (Calculated Grams) 058838.3 [place] Body Weight 160 % [place] Body Weight 140 Body Mass Index (BMI) 33.2 Weight Status Obese GI Symptoms GI Symptoms None Last BM 10/24 x 3 Difficult in: None Usual diet at home pt stated he was not following any diet restrictions Skin Integrity/Comment: juan Ulrich Estimated Nutritional Goals BEE in Kcals: Adj wt of IBW Calories/Kcals/Kg 25-30 Kcals Calculated 4356-1287 Protein: Adj wt of IBW Protein g/k Protein Calculated 80 Fluid: ml 2000-2400ml (1ml/kcal) Nutritional Problem 2. Problem Problem obesity Etiology possible excessive energy intake Signs/Symptoms: BMI 33.2 1. Problem Problem altered nutrition related lab values Etiology hx of DM, excessive carbohydrates intake Signs/Symptoms: Glucose 357, POC 325 Malnutrition Alert Protein-Calorie Malnutrition N/A Is there a minimum of two criteria No selected? Query Text:Check all the applicable criteria. A minimum of two criteria are recommended for diagnosis of either severe or non-severe malnutrition. Intervention/Recommendation Comments 1. Continue with current diet as ordered. Explained [facility] diet to pt. Pt receiptive, no question or concern, will follow the diet. 2. Monitor PO intake, wt, labs and skin integrity 3. F/U as moderate risk in 3-5 days, 10/27-10/29 Expected Outcomes/Goals Expected Outcomes/Goals 1. PO intake to meet at least 75% of nutritional needs. 2. Wt stability, skin to remain intact, labs to improve
[2017-10-27] MEDS: Insulin Detemir 100 units/mL 10mL Vial SUBQ SCH (21:23)
[2017-10-28] MEDS: INSULIN ASPART SLIDING SCALE 100 UNITS/ML UNIT SUBQ SCH ×4 (07:05→21:26)
[2017-10-28] MEDS: Lactobacillus Rhamnosus GG 15 Billion CFU CAP.SPRINK PO SCH (08:48)
[2017-10-28] MEDS: Amoxicillin/Clavulanat 875/125 Tab PO SCH ×2 (09:04→16:41)
[2017-10-28] MEDS: Multivitamin w/ Minerals Tab PO SCH (09:04)
[2017-10-28] MEDS: Fenofibrate, Micronized 134 mg Cap PO SCH (09:05)
[2017-10-28] MEDS: Atorvastatin Calcium 10 MG TAB PO SCH (09:06)
--- NOTE | 2017-10-28 18:35 | Internal Medicine Prog Note ---
Internal Medicine Subjective - Subjective Service Date: 10/28/17 Patient seen and examined:: with staff (he has loose stool.no abdominal pain or nausea), without staff Patient is:: non-interactive, in bed, confused Per staff patient has:: no adverse event Internal Medicine Objective - Results Result Diagrams: 10/23/17 21:21 10/23/17 21:21 Recent Labs: Laboratory Last Values WBC 11.8 Th/cmm (4.8-10.8) H 10/23/17 21:21 RBC 4.50 Mil/cmm (3.80-5.80) 10/23/17 21:21 Hgb 13.3 gm/dL (12-16) 10/23/17 21:21 Hct 40.1 % (41.0-60) L 10/23/17 21:21 MCV 89.0 fl (80-99) 10/23/17 21:21 MCH 29.4 pg (27.0-31.0) 10/23/17 21: MCHC Differential 33.1 pg (28.0-36.0) 10/23/17 21:21 RDW 12.7 % (11.5-20.0) 10/23/17 21:21 Plt Count 245 Th/cmm (150-400) 10/23/17 21:21 MPV 8.6 fl 10/23/17 21:21 Neutrophils % 90.1 % (40.0-80.0) H 10/23/17 21:21 Lymphocytes % 5.6 % (20.0-50.0) L 10/23/17 21: Monocytes % 1.9 % (2.0-10.0) L 10/23/17 21:21 Eosinophils % 0.2 % (0.0-5.0) 10/23/17 21: Basophils % 2.2 % (0.0-2.0) H 10/23/17 21:21 Sodium 126 mEq/L (136-145) L 10/23/17 21:21 Potassium 3.8 mEq/L (3.5-5.1) 10/23/17 21:21 Chloride 92 mEq/L (98-107) L 10/23/17 21:21 Carbon Dioxide 25.3 mEq/L (21.0-31.0) 10/23/17 21:21 Anion Gap 12.5 (7.0-16.0) 10/23/17 21:21 BUN 45 mg/dL (7-25) H 10/23/17 21:21 Creatinine 1.4 mg/dL (0.7-1.3) H 10/23/17 21:21 Est GFR ( Amer) TNP 10/23/17 21:21 Est GFR (Non-Af Amer) TNP 10/23/17 21:21 BUN/Creatinine Ratio 32.1 10/23/17 21:21 Glucose 357 mg/dL (70-105) H 10/23/17 21:21 POC Glucose 268 MG/DL (70 - 105) H 10/28/17 16:55 Hemoglobin A1c % 12.0 % (4.0-6.0) H 10/23/17 21:21 Calcium 8.9 mg/dL (8.6-10.3) 10/23/17 21:21 Total Bilirubin 0.8 mg/dL (0.3-1.0) 10/23/17 21:21 AST 22 U/L (13-39) 10/23/17 21:21 ALT 21 U/L (7-52) 10/23/17 21:21 Alkaline Phosphatase 51 U/L (34-104) 10/23/17 21:21 Total Protein 7.4 gm/dL (6.0-8.3) 10/23/17 21:21 Albumin 3.8 gm/dL (4.2-5.5) L 10/23/17 21:21 Globulin 3.6 gm/dL 10/23/17 21:21 Albumin/Globulin Ratio 1.1 (1.0-1.8) 10/23/17 21:21 TSH 1.06 uIU/ml (0.34-5.60) 10/23/17 21:21 Urine Source RANDOM 10/23/17 22:05 Urine Color YELLOW 10/23/17 22:05 Urine Clarity HAZY (CLEAR) 10/23/17 22:05 Urine pH 5.5 (4.6 - 8.0) 10/23/17 22:05 Ur Specific [place] 1.010 (1.005-1.030) 10/23/17 22:05 Urine Protein 30 mg/dL (NEGATIVE) H 10/23/17 22:05 Urine Glucose (UA) >=1000 mg/dL (NEGATIVE) H 10/23/17 22:05 Urine Ketones NEGATIVE mg/dL (NEGATIVE) 10/23/17 22:05 Urine Blood TRACE (NEGATIVE) 10/23/17 22:05 Urine Nitrate POSITIVE (NEGATIVE) H 10/23/17 22:05 Urine Bilirubin NEGATIVE (NEGATIVE) 10/23/17 22:05 Urine Urobilinogen 0.2 E.U./dL (0.2 - 1.0) 10/23/17 22:05 Ur Leukocyte Esterase MODERATE (NEGATIVE) H 10/23/17 22:05 Urine RBC 0-2 /hpf (0-5) H 10/23/17 22:05 Urine WBC >100 /hpf (0-5) H 10/23/17 22:05 Ur Epithelial Cells FEW /lpf (FEW) 10/23/17 22:05 Urine Bacteria MANY /hpf (NONE SEEN) H 10/23/17 22:05 - Physical Exam Vitals and I&O: Vital Signs Temp 98 F 10/28/17 14:00 Pulse 76 10/28/17 14:00 Resp 20 10/28/17 14:00 BP 130/68 10/28/17 16:41 Pulse Ox 20 10/28/17 14:00 Intake & Output 10/27/17 10/28/17 10/28/17 18:59 06:59 18:59 Intake Total 900 2200 Balance 900 2200 Intake: Oral 900 2200 Other: # Voids 3 4 # Bowel Movements 4 2 Stool Characteristics Liquid Soft Brown Liquid Brown Active Medications: Current Medications Acetaminophen (Tylenol) 650 mg PO Q4HR PRN PRN Reason: Mild Pain / Temp above 100 Stop: 12/23/17 00:00 Last Admin: 10/28/17 12:11 Dose: 650 mg Amoxicillin/Clavulanate Potassium (Augmentin 875-125mg) 1 tab PO BID [facility] Stop: 12/25/17 16:59 Last Admin: 10/28/17 16:41 Dose: 1 tab Ascorbic Acid (Vitamin C) 500 mg PO DAILY [facility] Stop: 12/23/17 08:59 Last Admin: 10/28/17 09:05 Dose: 500 mg Atorvastatin Calcium (Lipitor) 40 mg PO DAILY [facility] Stop: 12/23/17 08:59 Last Admin: 10/28/17 09:06 Dose: Not Given Bisacodyl (Dulcolax 10 Mg Supp) 10 mg RC DAILY PRN PRN Reason: Constipation Stop: 12/22/17 23:40 Carvedilol (Coreg) 50 mg PO DAILY [facility] Stop: 12/23/17 08:59 Last Admin: 10/28/17 09:06 Dose: 50 mg Dextrose (Glutose 40%) 37.5 gm PO DAILY PRN PRN Reason: LOW SUGAR Stop: 12/22/17 23:40 Docusate Sodium (Colace) 100 mg PO DAILY [facility] Stop: 12/23/17 08:59 Last Admin: 10/28/17 08:48 Dose: Not Given Escitalopram Oxalate (Lexapro) 20 mg PO HS [facility] PRN Reason: Protocol Stop: 12/23/17 20:59 Last Admin: 10/27/17 20:57 Dose: 20 mg Fenofibrate (Tricor) 134 mg PO DAILY [facility] Stop: 12/23/17 08:59 Last Admin: 10/28/17 09:05 Dose: 134 mg Furosemide (Lasix) 40 mg PO BID [facility] Stop: 12/23/17 08:59 Last Admin: 10/28/17 16:41 Dose: 40 mg Glucagon (Glucagen) 1 mg IM DAILY PRN; Protocol PRN Reason: LOW SUGAR (BG<70) Stop: 12/22/17 23:40 Guaifenesin/Dextromethorphan (Diabetic Tussin Dm Sugar Free) 5 ml PO Q6HR PRN PRN Reason: Cough Stop: 12/22/17 23:40 Insulin Aspart (Novolog Insulin Sliding Scale) 0 units SUBQ ACHS [facility] PRN Reason: Protocol Stop: 12/23/17 07:29 Last Admin: 10/28/17 17:23 Dose: 6 units Insulin Detemir (Levemir Insulin) 80 units SUBQ HS [facility] PRN Reason: Protocol Stop: 12/23/17 20:59 Last Admin: 10/27/17 21:23 Dose: 80 units Lactobacillus Rhamnosus (Culturelle 15b) 1 each PO DAILY [facility] Stop: 12/24/17 08:59 Last Admin: 10/28/17 08:48 Dose: Not Given Lorazepam (Ativan) 1 mg PO Q6HR PRN; Protocol PRN Reason: Anxiety/agitation Stop: 12/22/17 23:40 Last Admin: 10/27/17 22:16 Dose: 1 mg Magnesium Hydroxide (Milk Of Magnesia) 30 ml PO DAILY PRN PRN Reason: Constipation Stop: 12/22/17 23:40 Miscellaneous (Probiotic Screen) 1 ea MC PRN PRN PRN Reason: PROTOCOL Stop: 12/23/17 16:44 Quetiapine Fumarate (Seroquel) 50 mg PO TID [facility] PRN Reason: Protocol Stop: 12/24/17 08:59 Last Admin: 10/28/17 15:02 Dose: 50 mg Rivaroxaban (Xarelto) 20 mg PO 1700 [facility] Stop: 12/23/17 16:59 Last Admin: 10/28/17 16:41 Dose: 20 mg Tamsulosin HCl (Flomax) 0.4 mg PO HS [facility] Stop: 12/23/17 20:59 Last Admin: 10/27/17 20:57 Dose: 0.4 mg Trazodone HCl (Desyrel) 200 mg PO HS [facility] Stop: 12/23/17 20:59 Last Admin: 10/27/17 20:57 Dose: 200 mg Valsartan (Diovan) 320 mg PO DAILY [facility] Stop: 12/23/17 08:59 Last Admin: 10/28/17 09:05 Dose: 320 mg Zolpidem Tartrate (Ambien) 5 mg PO HS PRN PRN Reason: Insomnia Stop: 12/22/17 23:56 Last Admin: 10/27/17 22:16 Dose: 5 mg General: demented HEENT: NC/AT, PERRLA, EOMI, anicteric sclerae, throat clear Neck: Supple, No JVD, No thyromegaly, +2 carotid pulse wo bruit, No LAD Lungs: CTAB Cardiovascular: RRR, Normal S1, Normal S2, without murmur Abdomen: non-distended Extremities: clear Neurological: no change Internal Medicine Assmt/Plan - Assessment Assessment: 1.UTI. 2.DM. 3.HTN. 4.BPH. 5.HYPONATREMIA. 6.DEMENTIA. - Plan Plan: CONTINUE ON CURRENT MEDICATION AND DIET. Nutritional Asmnt/Malnutr-PDOC - Dietary Evaluation Malnutrition Findings (Please click <Entered> for more info): Nutritional Asmnt/Malnutrition Start: 10/24/17 14: 31 Text: Status: Complete Freq: Document 10/24/17 14:33 LCMIHAELAG (Rec: 10/24/17 14:41 LCMIHAELAG [email or web address]) Nutritional Asmnt/Malnutrition Patient General Information Nutritional Screening High Risk Diagnosis psychosis Pertinent Medical Hx/Surgical Hx HTN, CAD, CHF, dyslipidemia, BPH, psoriasis, DM, anxiety Subjective Information Pt seen sitting in dinning room at time of visit, just finished lunch tray. Pt stated he does not like cucumber and cottage cheeze. Current Diet Order/ Nutrition Support low sodium 2 gm, CCHO, TOM Pertinent Medications vitamin C, colace, lasix, glucagen, novolog, levemir Pertinent Labs 10/23 Na 126, K 3.8, Cl 92, BUN 45, Cr 1.4, Glucose 357, ALb 3.8 10/24 POC 325 Nutritional Hx/Data Height 1.75 m Height (Calculated Centimeters) 175.3 Current Weight (lbs) 102.058 kg Weight (Calculated Kilograms) 102.1 Weight (Calculated Grams) 494232.3 [place] Body Weight 160 % [place] Body Weight 140 Body Mass Index (BMI) 33.2 Weight Status Obese GI Symptoms GI Symptoms None Last BM 10/24 x 3 Difficult in: None Usual diet at home pt stated he was not following any diet restrictions Skin Integrity/Comment: juan Ulrich Estimated Nutritional Goals BEE in Kcals: Adj wt of IBW Calories/Kcals/Kg 25-30 Kcals Calculated 8781-2546 Protein: Adj wt of IBW Protein g/k Protein Calculated 80 Fluid: ml 2000-2400ml (1ml/kcal) Nutritional Problem 2. Problem Problem obesity Etiology possible excessive energy intake Signs/Symptoms: BMI 33.2 1. Problem Problem altered nutrition related lab values Etiology hx of DM, excessive carbohydrates intake Signs/Symptoms: Glucose 357, POC 325 Malnutrition Alert Protein-Calorie Malnutrition N/A Is there a minimum of two criteria No selected? Query Text:Check all the applicable criteria. A minimum of two criteria are recommended for diagnosis of either severe or non-severe malnutrition. Intervention/Recommendation Comments 1. Continue with current diet as ordered. Explained [facility] diet to pt. Pt receiptive, no question or concern, will follow the diet. 2. Monitor PO intake, wt, labs and skin integrity 3. F/U as moderate risk in 3-5 days, 10/27-10/29 Expected Outcomes/Goals Expected Outcomes/Goals 1. PO intake to meet at least 75% of nutritional needs. 2. Wt stability, skin to remain intact, labs to improve
--- NOTE | 2017-10-28 20:26 | Psychosocial Evaluation ---
DATE OF SERVICE: SUBJECTIVE: The patient was seen and evaluated. The patient's chart reviewed. This is Dr. Cyr covering for Dr. Rueda. IDENTIFYING DATA: A 77-year-old male with a history of depression, ____ [facility], intermediate, presented here very angry, irritable and physically attacking staff and screaming throughout the hospital course. The patient's nursing staff reported that he expressed some mild sedation. Today on [id number] evaluation, the patient presents very irritable, easily derails in his conversations and disengaged and avoiding and extremely a poor historian. MENTAL STATUS EXAMINATION: Still irritable, easily agitated, and is disengaged. ASSESSMENT AND PLAN: The patient is a 77-year-old male with an extensive history of aggressive behavior, recently initiated on quetiapine at 50 mg p.o. t.i.d. We will continue with the current medication regimen, still reaching steady state to reduce the risk of aggression that he has been exhibiting especially at the intermediate and we will continue with Lexapro 20 mg a day. [facility]# [id number]
[2017-10-28] MEDS: Insulin Detemir 100 units/mL 10mL Vial SUBQ SCH (21:26)
[2017-10-29] MEDS: INSULIN ASPART SLIDING SCALE 100 UNITS/ML UNIT SUBQ SCH ×4 (07:09→21:00)
[2017-10-29] MEDS: Lactobacillus Rhamnosus GG 15 Billion CFU CAP.SPRINK PO SCH (08:15)
[2017-10-29] MEDS: Amoxicillin/Clavulanat 875/125 Tab PO SCH (08:15)
[2017-10-29] MEDS: Fenofibrate, Micronized 134 mg Cap PO SCH (08:16)
[2017-10-29] MEDS: Multivitamin w/ Minerals Tab PO SCH (08:16)
[2017-10-29] MEDS: Atorvastatin Calcium 10 MG TAB PO SCH (08:16)
--- NOTE | 2017-10-29 14:27 | Progress Notes ---
DATE: The patient was seen and evaluated. The patient's chart reviewed. Dr. Cyr covering for Dr. Rueda. Overnight, nursing staff reported the patient still needs a lot of redirections, easily agitated and disorganized. Today on [id number] evaluation, the patient denies any side effect of medication, reporting feeling a bit less sedated. He does derail easily with conversations and just want to pick another topic. MENTAL STATUS EXAMINATION: Derails, disorganized. ASSESSMENT AND PLAN: The patient is a 77-year-old male with a history of disorganized thought process resulting in aggressive behavior in a long-term. We will continue with the current medication regimen. He continues to adjust and less side effects of sedation are noted and due to his active impulsive and aggressive behaviors, unable to formulate a safety plan outside the structured environment. JOB# [id number]
[2017-10-29] MEDS ORDERED: Amoxicillin/Clavulanat 875/125 Tab PO SCH (21:00)
[2017-10-29] MEDS: Insulin Detemir 100 units/mL 10mL Vial SUBQ SCH (21:00)
--- NOTE | 2017-10-29 21:04 | Internal Medicine Prog Note ---
Internal Medicine Subjective - Subjective Service Date: 10/29/17 Patient seen and examined:: with staff (HE FEELS M), without staff ( NO DIARRHEA ) Patient is:: non-interactive, in bed, confused Per staff patient has:: no adverse event Internal Medicine Objective - Results Result Diagrams: 10/23/17 21:21 10/23/17 21:21 Recent Labs: Laboratory Last Values WBC 11.8 Th/cmm (4.8-10.8) H 10/23/17 21:21 RBC 4.50 Mil/cmm (3.80-5.80) 10/23/17 21:21 Hgb 13.3 gm/dL (12-16) 10/23/17 21:21 Hct 40.1 % (41.0-60) L 10/23/17 21:21 MCV 89.0 fl (80-99) 10/23/17 21:21 MCH 29.4 pg (27.0-31.0) 10/23/17 21: MCHC Differential 33.1 pg (28.0-36.0) 10/23/17 21:21 RDW 12.7 % (11.5-20.0) 10/23/17 21:21 Plt Count 245 Th/cmm (150-400) 10/23/17 21:21 MPV 8.6 fl 10/23/17 21:21 Neutrophils % 90.1 % (40.0-80.0) H 10/23/17 21:21 Lymphocytes % 5.6 % (20.0-50.0) L 10/23/17 21: Monocytes % 1.9 % (2.0-10.0) L 10/23/17 21:21 Eosinophils % 0.2 % (0.0-5.0) 10/23/17 21: Basophils % 2.2 % (0.0-2.0) H 10/23/17 21:21 Sodium 126 mEq/L (136-145) L 10/23/17 21:21 Potassium 3.8 mEq/L (3.5-5.1) 10/23/17 21:21 Chloride 92 mEq/L (98-107) L 10/23/17 21:21 Carbon Dioxide 25.3 mEq/L (21.0-31.0) 10/23/17 21:21 Anion Gap 12.5 (7.0-16.0) 10/23/17 21:21 BUN 45 mg/dL (7-25) H 10/23/17 21:21 Creatinine 1.4 mg/dL (0.7-1.3) H 10/23/17 21:21 Est GFR ( Amer) TNP 10/23/17 21:21 Est GFR (Non-Af Amer) TNP 10/23/17 21:21 BUN/Creatinine Ratio 32.1 10/23/17 21:21 Glucose 357 mg/dL (70-105) H 10/23/17 21:21 POC Glucose 288 MG/DL (70 - 105) H 10/29/17 17:29 Hemoglobin A1c % 12.0 % (4.0-6.0) H 10/23/17 21:21 Calcium 8.9 mg/dL (8.6-10.3) 10/23/17 21:21 Total Bilirubin 0.8 mg/dL (0.3-1.0) 10/23/17 21:21 AST 22 U/L (13-39) 10/23/17 21:21 ALT 21 U/L (7-52) 10/23/17 21:21 Alkaline Phosphatase 51 U/L (34-104) 10/23/17 21:21 Total Protein 7.4 gm/dL (6.0-8.3) 10/23/17 21:21 Albumin 3.8 gm/dL (4.2-5.5) L 10/23/17 21:21 Globulin 3.6 gm/dL 10/23/17 21:21 Albumin/Globulin Ratio 1.1 (1.0-1.8) 10/23/17 21:21 TSH 1.06 uIU/ml (0.34-5.60) 10/23/17 21:21 Urine Source RANDOM 10/23/17 22:05 Urine Color YELLOW 10/23/17 22:05 Urine Clarity HAZY (CLEAR) 10/23/17 22:05 Urine pH 5.5 (4.6 - 8.0) 10/23/17 22:05 Ur Specific [place] 1.010 (1.005-1.030) 10/23/17 22:05 Urine Protein 30 mg/dL (NEGATIVE) H 01/23/18 22:05 Urine Glucose (UA) >=1000 mg/dL (NEGATIVE) H 10/23/17 22:05 Urine Ketones NEGATIVE mg/dL (NEGATIVE) 10/23/17 22:05 Urine Blood TRACE (NEGATIVE) 10/23/17 22:05 Urine Nitrate POSITIVE (NEGATIVE) H 10/23/17 22:05 Urine Bilirubin NEGATIVE (NEGATIVE) 10/23/17 22:05 Urine Urobilinogen 0.2 E.U./dL (0.2 - 1.0) 10/23/17 22:05 Ur Leukocyte Esterase MODERATE (NEGATIVE) H 10/23/17 22:05 Urine RBC 0-2 /hpf (0-5) H 10/23/17 22:05 Urine WBC >100 /hpf (0-5) H 10/23/17 22:05 Ur Epithelial Cells FEW /lpf (FEW) 10/23/17 22:05 Urine Bacteria MANY /hpf (NONE SEEN) H 10/23/17 22:05 - Physical Exam Vitals and I&O: Vital Signs Temp 98.8 F 10/29/17 20:00 Pulse 70 10/29/17 20:00 Resp 18 10/29/17 20:00 BP 142/56 10/29/17 17:04 Pulse Ox 96 10/29/17 20:00 Intake & Output 10/29/17 10/29/17 10/30/17 06:59 18:59 06:59 Intake Total 120 900 240 Output Total 1 Balance 120 900 239 Intake: Oral 120 900 240 Output: Stool 1 Other: # Voids 3 3 1 # Bowel Movements 3 3 Stool Characteristics Soft Soft Liquid Liquid Brown Brown Active Medications: Current Medications Acetaminophen (Tylenol) 650 mg PO Q4HR PRN PRN Reason: Mild Pain / Temp above 100 Stop: 12/23/17 00:00 Last Admin: 10/28/17 12:11 Dose: 650 mg Amoxicillin/Clavulanate Potassium (Augmentin 875-125mg) 1 tab PO Q12H [facility] Stop: 11/03/17 20:59 Last Admin: 10/29/17 20:42 Dose: 1 tab Ascorbic Acid (Vitamin C) 500 mg PO DAILY [facility] Stop: 12/23/17 08:59 Last Admin: 10/29/17 08:16 Dose: 500 mg Atorvastatin Calcium (Lipitor) 40 mg PO DAILY [facility] Stop: 12/23/17 08:59 Last Admin: 10/29/17 08:16 Dose: 40 mg Bisacodyl (Dulcolax 10 Mg Supp) 10 mg RC DAILY PRN PRN Reason: Constipation Stop: 12/22/17 23:40 Carvedilol (Coreg) 50 mg PO DAILY [facility] Stop: 12/23/17 08:59 Last Admin: 10/29/17 08:17 Dose: 50 mg Dextrose (Glutose 40%) 37.5 gm PO DAILY PRN PRN Reason: LOW SUGAR Stop: 12/22/17 23:40 Docusate Sodium (Colace) 100 mg PO DAILY [facility] Stop: 12/23/17 08:59 Last Admin: 10/29/17 08:16 Dose: 100 mg Escitalopram Oxalate (Lexapro) 20 mg PO HS [facility] PRN Reason: Protocol Stop: 12/23/17 20:59 Last Admin: 10/29/17 20:41 Dose: 20 mg Fenofibrate (Tricor) 134 mg PO DAILY [facility] Stop: 12/23/17 08:59 Last Admin: 10/29/17 08:16 Dose: 134 mg Furosemide (Lasix) 40 mg PO BID [facility] Stop: 12/23/17 08:59 Last Admin: 10/29/17 17:04 Dose: 40 mg Glucagon (Glucagen) 1 mg IM DAILY PRN; Protocol PRN Reason: LOW SUGAR (BG<70) Stop: 12/22/17 23:40 Guaifenesin/Dextromethorphan (Diabetic Tussin Dm Sugar Free) 5 ml PO Q6HR PRN PRN Reason: Cough Stop: 12/22/17 23:40 Insulin Aspart (Novolog Insulin Sliding Scale) 0 units SUBQ ACHS [facility] PRN Reason: Protocol Stop: 12/23/17 07:29 Last Admin: 10/29/17 17:34 Dose: 6 units Insulin Detemir (Levemir Insulin) 80 units SUBQ HS [facility] PRN Reason: Protocol Stop: 12/23/17 20:59 Last Admin: 10/28/17 21:26 Dose: 80 units Lactobacillus Rhamnosus (Culturelle 15b) 1 each PO DAILY [facility] Stop: 11/10/17 08:59 Last Admin: 10/29/17 08:15 Dose: 1 each Lorazepam (Ativan) 1 mg PO Q6HR PRN; Protocol PRN Reason: Anxiety/agitation Stop: 12/22/17 23:40 Last Admin: 10/29/17 04:27 Dose: 1 mg Magnesium Hydroxide (Milk Of Magnesia) 30 ml PO DAILY PRN PRN Reason: Constipation Stop: 12/22/17 23:40 Miscellaneous (Probiotic Screen) 1 ea MC PRN PRN PRN Reason: PROTOCOL Stop: 12/23/17 16:44 Quetiapine Fumarate (Seroquel) 50 mg PO TID [facility] PRN Reason: Protocol Stop: 12/24/17 08:59 Last Admin: 10/29/17 20:43 Dose: 50 mg Rivaroxaban (Xarelto) 20 mg PO 1700 [facility] Stop: 12/23/17 16:59 Last Admin: 10/29/17 17:03 Dose: 20 mg Tamsulosin HCl (Flomax) 0.4 mg PO HS [facility] Stop: 12/23/17 20:59 Last Admin: 10/29/17 20:41 Dose: 0.4 mg Trazodone HCl (Desyrel) 200 mg PO HS [facility] Stop: 12/23/17 20:59 Last Admin: 10/29/17 20:43 Dose: 200 mg Valsartan (Diovan) 320 mg PO DAILY [facility] Stop: 12/23/17 08:59 Last Admin: 10/29/17 08:21 Dose: Not Given Zolpidem Tartrate (Ambien) 5 mg PO HS PRN PRN Reason: Insomnia Stop: 12/22/17 23:56 Last Admin: 10/28/17 20:39 Dose: 5 mg General: demented HEENT: NC/AT, PERRLA, EOMI, anicteric sclerae, throat clear Neck: Supple, No JVD, No thyromegaly, +2 carotid pulse wo bruit, No LAD Lungs: CTAB Cardiovascular: RRR, Normal S1, Normal S2, without murmur Abdomen: non-distended Extremities: clear Neurological: no change Internal Medicine Assmt/Plan - Assessment Assessment: 1.UTI. 2.DM. 3.HTN. 4.BPH. 5.HYPONATREMIA. 6.DEMENTIA. 7.DIARRHEA - Plan Plan: DC AUGMENTIN .CBC AND CMP IN AM. Nutritional Asmnt/Malnutr-PDOC - Dietary Evaluation Malnutrition Findings (Please click <Entered> for more info): Nutritional Asmnt/Malnutrition Start: 10/24/17 14: 31 Text: Status: Complete Freq: Document 10/24/17 14:33 SANCHO (Rec: 10/24/17 14:41 SANCHO [email or web address]) Nutritional Asmnt/Malnutrition Patient General Information Nutritional Screening High Risk Diagnosis psychosis Pertinent Medical Hx/Surgical Hx HTN, CAD, CHF, dyslipidemia, BPH, psoriasis, DM, anxiety Subjective Information Pt seen sitting in dinning room at time of visit, just finished lunch tray. Pt stated he does not like cucumber and cottage cheeze. Current Diet Order/ Nutrition Support low sodium 2 gm, CCHO, TOM Pertinent Medications vitamin C, colace, lasix, glucagen, novolog, levemir Pertinent Labs 10/23 Na 126, K 3.8, Cl 92, BUN 45, Cr 1.4, Glucose 357, ALb 3.8 10/24 POC 325 Nutritional Hx/Data Height 1.75 m Height (Calculated Centimeters) 175.3 Current Weight (lbs) 102.058 kg Weight (Calculated Kilograms) 102.1 Weight (Calculated Grams) 499930.3 [place] Body Weight 160 % [place] Body Weight 140 Body Mass Index (BMI) 33.2 Weight Status Obese GI Symptoms GI Symptoms None Last BM 10/24 x 3 Difficult in: None Usual diet at home pt stated he was not following any diet restrictions Skin Integrity/Comment: juan Ulrich Estimated Nutritional Goals BEE in Kcals: Adj wt of IBW Calories/Kcals/Kg 25-30 Kcals Calculated 1664-0860 Protein: Adj wt of IBW Protein g/k Protein Calculated 80 Fluid: ml 2000-2400ml (1ml/kcal) Nutritional Problem 2. Problem Problem obesity Etiology possible excessive energy intake Signs/Symptoms: BMI 33.2 1. Problem Problem altered nutrition related lab values Etiology hx of DM, excessive carbohydrates intake Signs/Symptoms: Glucose 357, POC 325 Malnutrition Alert Protein-Calorie Malnutrition N/A Is there a minimum of two criteria No selected? Query Text:Check all the applicable criteria. A minimum of two criteria are recommended for diagnosis of either severe or non-severe malnutrition. Intervention/Recommendation Comments 1. Continue with current diet as ordered. Explained [facility] diet to pt. Pt receiptive, no question or concern, will follow the diet. 2. Monitor PO intake, wt, labs and skin integrity 3. F/U as moderate risk in 3-5 days, 10/27-10/29 Expected Outcomes/Goals Expected Outcomes/Goals 1. PO intake to meet at least 75% of nutritional needs. 2. Wt stability, skin to remain intact, labs to improve
--- NOTE | 2017-10-29 23:36 | Progress Notes ---
DATE: 10/29/[address] Rueda. This is a 77-year-old male who was admitted on 10/23/2017 because of aggressive behavior and agitation with a history of depression. He came from [facility]. The patient was cursing the staff, has been angry, agitated, physically attacking the staff scan was screaming and yelling was not able to follow direction. The patient continues to be irritable, at times angry and episodes of yelling and screaming. Continues to be unpredictable and impulsive. He is on Seroquel 50 mg 3 times a day with no side effects, no sedation, no nausea, no extrapyramidal symptoms. We will continue to work with the patient in group therapy, milieu therapy, and adjust medication as needed. JOB# [id number]
[2017-10-30] MEDS: INSULIN ASPART SLIDING SCALE 100 UNITS/ML UNIT SUBQ SCH ×4 (06:31→20:42)
[2017-10-30] MEDS: Fenofibrate, Micronized 134 mg Cap PO SCH (08:20)
[2017-10-30] MEDS: Lactobacillus Rhamnosus GG 15 Billion CFU CAP.SPRINK PO SCH (08:21)
[2017-10-30] MEDS: Atorvastatin Calcium 10 MG TAB PO SCH (08:21)
[2017-10-30] MEDS: Multivitamin w/ Minerals Tab PO SCH (08:21)
[2017-10-30 08:23] LABS: ALB/GLOB RATIO 1.2 (1.0-1.8); ALBUMIN 4.2 gm/dL (4.2-5.5); ALKALINE PHOSPHATASE 47 U/L (34-104); ANION GAP 11.4 (7.0-16.0); BILIRUBIN,TOTAL 0.5 mg/dL (0.3-1.0); BUN - UREA NITROGEN 52 mg/dL (7-25); CALCIUM SERUM 9.8 mg/dL (8.6-10.3); CARBON DIOXIDE 29.5 mEq/L (21.0-31.0); CHLORIDE 99 mEq/L (98-107); CREATININE - SERUM 1.3 mg/dL (0.7-1.3); GLUCOSE 221 mg/dL (70-105); POTASSIUM SERUM 3.9 mEq/L (3.5-5.1); SGOT 34 U/L (13-39); SGPT/ALT 33 U/L (7-52); SODIUM SERUM 136 mEq/L (136-145); TOTAL PROTEIN,SERUM 7.8 gm/dL (6.0-8.3)
[2017-10-30 08:30] LABS: % BASOPHILS 0.1 % (0.0-2.0); % EOSINOPHILS 5.3 % (0.0-5.0); % LYMPHOCYTES 21.6 % (20.0-50.0); % MONOCYTES 7.5 % (2.0-10.0); % NEUTROPHILS 65.5 % (40.0-80.0); EOSINOPHILE ABSOLUTE 0.3 Th/cmm (0.1-0.4); HEMATOCRIT 40.1 % (41.0-60); HEMOGLOBIN 13.5 gm/dL (12-16); LYMPHOCYTE ABSOLUTE 1.4 Th/cmm (1.5-3.0); MEAN CELL VOLUME 88.9 fl (80-99); MEAN CORPUSCULAR HEMOGLOBIN 29.8 pg (27.0-31.0); MEAN CORPUSCULAR HGB CONC 33.6 pg (28.0-36.0); MEAN PLATELET VOLUME 8.8 fl; MONOCYTE ABSOLUTE 0.5 Th/cmm (0.3-1.0); NEUTROPHILE ABSOLUTE 4.3 Th/cmm (1.8-8.0); PLATELET COUNT 292 Th/cmm (150-400); RED BLOOD COUNT 4.51 Mil/cmm (3.80-5.80); RED CELL DISTRIBUTION WIDTH 12.9 % (11.5-20.0); WHITE BLOOD COUNT 6.5 Th/cmm (4.8-10.8)
--- NOTE | 2017-10-30 15:54 | Progress Notes ---
DATE: 10/30/2017 Case was discussed with staff of the patient, reviewed records. The patient continues to be irritable and angry. He continues to have poor insight continues to be unable to make safe plan for self-care. He is unpredictable, impulsive, needing redirection. He is compliant with the medication with no side effects, no sedation, no nausea, no extrapyramidal symptoms. Sleeping better and eating better. We will continue outpatient group therapy, milieu therapy, and adjust medication as needed. [facility]# [id number]
--- NOTE | 2017-10-30 19:17 | Internal Medicine Prog Note ---
Internal Medicine Subjective - Subjective Service Date: 10/30/17 Patient seen and examined:: with staff (HE FEELS WELL,NO DIARHIA) Patient is:: non-interactive, in bed, confused Per staff patient has:: no adverse event Internal Medicine Objective - Results Result Diagrams: 10/30/17 07:45 10/30/17 07:45 Recent Labs: Laboratory Last Values WBC 6.5 Th/cmm (4.8-10.8) D 10/30/17 07:45 RBC 4.51 Mil/cmm (3.80-5.80) 10/30/17 07:45 Hgb 13.5 gm/dL (12-16) 10/30/17 07:45 Hct 40.1 % (41.0-60) L 10/30/17 07:45 MCV 88.9 fl (80-99) 10/30/17 07:45 MCH 29.8 pg (27.0-31.0) 10/30/17 07:45 MCHC Differential 33.6 pg (28.0-36.0) 10/30/17 07:45 RDW 12.9 % (11.5-20.0) 10/30/17 07:45 Plt Count 292 Th/cmm (150-400) 10/30/17 07:45 MPV 8.8 fl 10/30/17 07:45 Neutrophils % 65.5 % (40.0-80.0) 10/30/17 07:45 Lymphocytes % 21.6 % (20.0-50.0) 10/30/17 07:45 Monocytes % 7.5 % (2.0-10.0) 10/30/17 07:45 Eosinophils % 5.3 % (0.0-5.0) H 10/30/17 07:45 Basophils % 0.1 % (0.0-2.0) 10/30/17 07:45 Sodium 136 mEq/L (136-145) 10/30/17 07:45 Potassium 3.9 mEq/L (3.5-5.1) 10/30/17 07:45 Chloride 99 mEq/L (98-107) 10/30/17 07:45 Carbon Dioxide 29.5 mEq/L (21.0-31.0) 10/30/17 07:45 Anion Gap 11.4 (7.0-16.0) 10/30/17 07:45 BUN 52 mg/dL (7-25) H 10/30/17 07:45 Creatinine 1.3 mg/dL (0.7-1.3) 10/30/17 07:45 Est GFR ( Amer) TNP 10/30/17 07:45 Est GFR (Non-Af Amer) TNP 10/30/17 07:45 BUN/Creatinine Ratio 40.0 10/30/17 07:45 Glucose 221 mg/dL (70-105) H 10/30/17 07:45 POC Glucose 354 MG/DL (70 - 105) H 10/30/17 16:15 Hemoglobin A1c % 12.0 % (4.0-6.0) H 10/23/17 21:21 Calcium 9.8 mg/dL (8.6-10.3) 10/30/17 07:45 Total Bilirubin 0.5 mg/dL (0.3-1.0) 10/30/17 07:45 AST 34 U/L (13-39) 10/30/17 07:45 ALT 33 U/L (7-52) 10/30/17 07:45 Alkaline Phosphatase 47 U/L (34-104) 10/30/17 07:45 Total Protein 7.8 gm/dL (6.0-8.3) 10/30/17 07:45 Albumin 4.2 gm/dL (4.2-5.5) 10/30/17 07:45 Globulin 3.6 gm/dL 10/30/17 07:45 Albumin/Globulin Ratio 1.2 (1.0-1.8) 10/30/17 07:45 TSH 1.06 uIU/ml (0.34-5.60) 10/23/17 21:21 Urine Source RANDOM 10/23/17 22:05 Urine Color YELLOW 10/23/17 22:05 Urine Clarity HAZY (CLEAR) 10/23/17 22:05 Urine pH 5.5 (4.6 - 8.0) 10/23/17 22:05 Ur Specific [place] 1.010 (1.005-1.030) 10/23/17 22:05 Urine Protein 30 mg/dL (NEGATIVE) H 10/23/17 22:05 Urine Glucose (UA) >=1000 mg/dL (NEGATIVE) H 10/23/17 22:05 Urine Ketones NEGATIVE mg/dL (NEGATIVE) 10/23/17 22:05 Urine Blood TRACE (NEGATIVE) 10/23/17 22:05 Urine Nitrate POSITIVE (NEGATIVE) H 10/23/17 22:05 Urine Bilirubin NEGATIVE (NEGATIVE) 10/23/17 22:05 Urine Urobilinogen 0.2 E.U./dL (0.2 - 1.0) 10/23/17 22:05 Ur Leukocyte Esterase MODERATE (NEGATIVE) H 10/23/17 22:05 Urine RBC 0-2 /hpf (0-5) H 10/23/17 22:05 Urine WBC >100 /hpf (0-5) H 10/23/17 22:05 Ur Epithelial Cells FEW /lpf (FEW) 10/23/17 22:05 Urine Bacteria MANY /hpf (NONE SEEN) H 10/23/17 22:05 - Physical Exam Vitals and I&O: Vital Signs Temp 97.6 F 10/30/17 14:30 Pulse 90 10/30/17 14:30 Resp 20 10/30/17 14:30 BP 110/54 10/30/17 16:39 Pulse Ox 95 10/30/17 14:30 Intake & Output 10/30/17 10/30/17 10/31/17 06:59 18:59 06:59 Intake Total 240 1000 Output Total 1 Balance 239 1000 Intake: Oral 240 1000 Output: Stool 1 Other: # Voids 1 4 # Bowel Movements 2 Stool Characteristics Soft Soft Liquid Liquid Brown Brown Active Medications: Current Medications Acetaminophen (Tylenol) 650 mg PO Q4HR PRN PRN Reason: Mild Pain / Temp above 100 Stop: 12/23/17 00:00 Last Admin: 10/28/17 12:11 Dose: 650 mg Ascorbic Acid (Vitamin C) 500 mg PO DAILY [facility] Stop: 12/23/17 08:59 Last Admin: 10/30/17 08:21 Dose: 500 mg Atorvastatin Calcium (Lipitor) 40 mg PO DAILY [facility] Stop: 12/23/17 08:59 Last Admin: 10/30/17 08:21 Dose: 40 mg Bisacodyl (Dulcolax 10 Mg Supp) 10 mg RC DAILY PRN PRN Reason: Constipation Stop: 12/22/17 23:40 Carvedilol (Coreg) 50 mg PO DAILY [facility] Stop: 12/23/17 08:59 Last Admin: 10/30/17 08:26 Dose: Not Given Dextrose (Glutose 40%) 37.5 gm PO DAILY PRN PRN Reason: LOW SUGAR Stop: 12/22/17 23:40 Docusate Sodium (Colace) 100 mg PO DAILY [facility] Stop: 12/23/17 08:59 Last Admin: 10/30/17 08:21 Dose: 100 mg Escitalopram Oxalate (Lexapro) 20 mg PO [facility] PRN Reason: Protocol Stop: 12/23/17 20:59 Last Admin: 10/29/17 20:41 Dose: 20 mg Fenofibrate (Tricor) 134 mg PO DAILY [facility] Stop: 12/23/17 08:59 Last Admin: 10/30/17 08:20 Dose: 134 mg Furosemide (Lasix) 40 mg PO BID [facility] Stop: 12/23/17 08:59 Last Admin: 10/30/17 16:39 Dose: 40 mg Glucagon (Glucagen) 1 mg IM DAILY PRN; Protocol PRN Reason: LOW SUGAR (BG<70) Stop: 12/22/17 23:40 Guaifenesin/Dextromethorphan (Diabetic Tussin Dm Sugar Free) 5 ml PO Q6HR PRN PRN Reason: Cough Stop: 12/22/17 23:40 Insulin Aspart (Novolog Insulin Sliding Scale) 0 units SUBQ ACHS [facility] PRN Reason: Protocol Stop: 12/23/17 07:29 Last Admin: 10/30/17 16:35 Dose: 10 units Insulin Detemir (Levemir Insulin) 80 units SUBQ HS [facility] PRN Reason: Protocol Stop: 12/23/17 20:59 Last Admin: 10/29/17 21:00 Dose: 80 units Lactobacillus Rhamnosus (Culturelle 15b) 1 each PO DAILY [facility] Stop: 11/10/17 08:59 Last Admin: 10/30/17 08:21 Dose: 1 each Lorazepam (Ativan) 1 mg PO Q6HR PRN; Protocol PRN Reason: Anxiety/agitation Stop: 12/22/17 23:40 Last Admin: 10/29/17 23:16 Dose: 1 mg Magnesium Hydroxide (Milk Of Magnesia) 30 ml PO DAILY PRN PRN Reason: Constipation Stop: 12/22/17 23:40 Miscellaneous (Probiotic Screen) 1 ea MC PRN PRN PRN Reason: PROTOCOL Stop: 12/23/17 16:44 Quetiapine Fumarate (Seroquel) 50 mg PO TID [facility] PRN Reason: Protocol Stop: 12/24/17 08:59 Last Admin: 10/30/17 13:58 Dose: 50 mg Rivaroxaban (Xarelto) 20 mg PO 1700 [facility] Stop: 12/23/17 16:59 Last Admin: 10/30/17 16:38 Dose: 20 mg Tamsulosin HCl (Flomax) 0.4 mg PO HS [facility] Stop: 12/23/17 20:59 Last Admin: 10/29/17 20:41 Dose: 0.4 mg Trazodone HCl (Desyrel) 200 mg PO HS [facility] Stop: 12/23/17 20:59 Last Admin: 10/29/17 20:43 Dose: 200 mg Valsartan (Diovan) 320 mg PO DAILY [facility] Stop: 12/23/17 08:59 Last Admin: 10/30/17 08:27 Dose: Not Given Zolpidem Tartrate (Ambien) 5 mg PO HS PRN PRN Reason: Insomnia Stop: 12/22/17 23:56 Last Admin: 10/28/17 20:39 Dose: 5 mg General: demented HEENT: NC/AT, PERRLA, EOMI, anicteric sclerae, throat clear Neck: Supple, No JVD, No thyromegaly, +2 carotid pulse wo bruit, No LAD Lungs: CTAB Cardiovascular: RRR, Normal S1, Normal S2, without murmur Abdomen: non-distended Extremities: clear Neurological: no change Internal Medicine Assmt/Plan - Assessment Assessment: 1.DM. 2.HTN. 3.BPH 4.DEMENTIA. - Plan Plan: CONTINUE ON CURRENT MEDICATION AND DIET. Nutritional Asmnt/Malnutr-PDOC - Dietary Evaluation Malnutrition Findings (Please click <Entered> for more info): Nutritional Asmnt/Malnutrition Start: 10/24/17 14: 31 Text: Status: Complete Freq: Document 10/24/17 14:33 SANCHO (Rec: 10/24/17 14:41 SANCHO [id number]) Nutritional Asmnt/Malnutrition Patient General Information Nutritional Screening High Risk Diagnosis psychosis Pertinent Medical Hx/Surgical Hx HTN, CAD, CHF, dyslipidemia, BPH, psoriasis, DM, anxiety Subjective Information Pt seen sitting in dinning room at time of visit, just finished lunch tray. Pt stated he does not like cucumber and cottage cheeze. Current Diet Order/ Nutrition Support low sodium 2 gm, CCHO, TOM Pertinent Medications vitamin C, colace, lasix, glucagen, novolog, levemir Pertinent Labs 10/23 Na 126, K 3.8, Cl 92, BUN 45, Cr 1.4, Glucose 357, ALb 3.8 10/24 POC 325 Nutritional Hx/Data Height 1.75 m Height (Calculated Centimeters) 175.3 Current Weight (lbs) 102.058 kg Weight (Calculated Kilograms) 102.1 Weight (Calculated Grams) 691897.3 Walker Body Weight 160 % Walker Body Weight 140 Body Mass Index (BMI) 33.2 Weight Status Obese GI Symptoms GI Symptoms None Last BM 10/24 x 3 Difficult in: None Usual diet at home pt stated he was not following any diet restrictions Skin Integrity/Comment: juan Ulrich Estimated Nutritional Goals BEE in Kcals: Adj wt of IBW Calories/Kcals/Kg 25-30 Kcals Calculated 2466-1290 Protein: Adj wt of IBW Protein g/k Protein Calculated 80 Fluid: ml 2000-2400ml (1ml/kcal) Nutritional Problem 2. Problem Problem obesity Etiology possible excessive energy intake Signs/Symptoms: BMI 33.2 1. Problem Problem altered nutrition related lab values Etiology hx of DM, excessive carbohydrates intake Signs/Symptoms: Glucose 357, POC 325 Malnutrition Alert Protein-Calorie Malnutrition N/A Is there a minimum of two criteria No selected? Query Text:Check all the applicable criteria. A minimum of two criteria are recommended for diagnosis of either severe or non-severe malnutrition. Intervention/Recommendation Comments 1. Continue with current diet as ordered. Explained [facility] diet to pt. Pt receiptive, no question or concern, will follow the diet. 2. Monitor PO intake, wt, labs and skin integrity 3. F/U as moderate risk in 3-5 days, 10/27-10/29 Expected Outcomes/Goals Expected Outcomes/Goals 1. PO intake to meet at least 75% of nutritional needs. 2. Wt stability, skin to remain intact, labs to improve
[2017-10-30] MEDS: Insulin Detemir 100 units/mL 10mL Vial SUBQ SCH (20:38)
[2017-10-31] MEDS: INSULIN ASPART SLIDING SCALE 100 UNITS/ML UNIT SUBQ SCH ×2 (06:41→11:24)
[2017-10-31] MEDS: Lactobacillus Rhamnosus GG 15 Billion CFU CAP.SPRINK PO SCH (08:17)
[2017-10-31] MEDS: Fenofibrate, Micronized 134 mg Cap PO SCH (08:17)
[2017-10-31] MEDS: Multivitamin w/ Minerals Tab PO SCH (08:17)
[2017-10-31] MEDS: Atorvastatin Calcium 10 MG TAB PO SCH (08:17)
--- NOTE | 2017-10-31 19:17 | Discharge Summary ---
DATE OF DISCHARGE: 10/31/2017 THE PATIENT'S AGE: 77. SEX: Male. PHYSICIAN: Dayne Rueda M.D., M.P.H. FINAL DIAGNOSIS/PRIMARY DIAGNOSIS: Depressive mood disorder, unspecified with psychotic features. REASON FOR HOSPITALIZATION: The patient was admitted to the hospital because of depression and agitation and the patient was screaming and yelling in the usp and was not able to follow any of staff directions and he was severely depressed. HOSPITAL COURSE: The patient continued to be severely anxious and severely depressed. The patient also was feeling hopeless and helpless. He also was easily agitated and easily irritable with difficulty following directions. The patient was continued on Lexapro and the dose adjusted to 20 mg every day and also he was given Seroquel adjusted to 50 mg 3 times a day. Gradually, the patient's affect was brighter. The patient was less agitated and less irritable. Placement was an issue and the patient's family, which I could not talk to them couple of times. They choose the patient to go to [facility]. Physical examination of the patient basically showed no major medical problems. AFTER DISCHARGE PLANS: The patient discharged from the hospital, wanted to [facility] with plan for followup there. EXPECTED OUTCOME AFTER DISCHARGE: Fair if the patient will continue with his treatment and continue to take his psychotropic medications. [facility]# [id number]
== END 2017-10-31 12:00 | DRG 885 ==
LOC: ER 20:38 → GERO 22:40
PROVIDERS: ADMIT Psychiatry & Neurology Psychiatry; ATTEND Psychiatry & Neurology Psychiatry
DX: F33.3 Major depressive disorder, recurrent, severe with psychotic symptoms (principal); E11.9 Type 2 diabetes mellitus without complications; E87.1 Hypo-osmolality and hyponatremia; I11.0 Hypertensive heart disease with heart failure; I50.9 Heart failure, unspecified; N39.0 Urinary tract infection, site not specified; F03.90 Unspecified dementia, unspecified severity, without behavioral disturbance, psychotic disturbance, mood disturbance, and anxiety; N40.0 Benign prostatic hyperplasia without lower urinary tract symptoms; I25.10 Atherosclerotic heart disease of native coronary artery without angina pectoris; E78.5 Hyperlipidemia, unspecified; F41.9 Anxiety disorder, unspecified; E86.0 Dehydration; R19.7 Diarrhea, unspecified; L40.9 Psoriasis, unspecified
CPT/HCPCS: 36415-UA; 71045-TC; 80053-TC; 81001-TC; 82948-90; 83036-90; 84443-TC; 85007-TC; 85025-TC; 85027-TC; 87086-90; 93005; 97530; J0696; J1200; J1630; J1815; J2060; J7030; X3904; Z7610